=== PATIENT | female | born 1950 | race Caucasian/White ===

== ENCOUNTER → 2018-01-22 14:28 | Outpatient (CLI) | payer MEDICARE, BC, SELFPAY ==
[2018-01-22 16:30] LABS: Free T3 2.5 pg/mL (2.18-3.98); T4 Free Direct 0.97 ng/dL (0.76-1.46); Thyroid Stim Hormone (TSH) 1.66 uIU/mL (0.358-3.74)
[2018-01-24 12:30] LABS: Thyroid Peroxidase AB 122 IU/mL (0-34)
== END ==
PROVIDERS: Visit Provider Obstetrics & Gynecology
DX: R53.83 Other fatigue (principal)
CPT/HCPCS: 36415; 84439; 84443; 84481; 86376

== ENCOUNTER → 2018-11-28 10:31 | Outpatient (CLI) | payer MEDICARE, BC, SELFPAY ==
[2018-11-28 11:34] LABS: Hemoglobin 14.8 g/dl (12.0-15.0); Mean Corp Hgb Conc 33.6 g/gl (32-36); Mean Corpuscular Hgb 30.9 pg (27.0-32.0); Mean Corpuscular Volume 91.9 fL (81-99); Mean Platelet Vol. 9.6 fl (6.2-12.0); Platelet Count 221 K/mm3 (150-450); RBC Distribution Width CV 12.4 % (11.6-14.6); RBC Distribution Width SD 41.6 fl (35.1-43.9); Red Blood Count 4.79 M/mm3 (4.2-5.4); White Blood Count 4.4 K/mm3 (4.4-11.0)
[2018-11-28 11:36] LABS: Scan Indicated on CBC? Y/N NO
[2018-11-28 12:15] LABS: ALB/GLOB Ratio 1.2 RATIO (0.9-2.4); AST(SGOT) 14 U/L (15-37); Alanine Aminotransfer ALT/SGPT 20 U/L (13-56); Albumin, Serum 4.1 g/dL (3.2-5.0); Alkaline Phosphatase 80 U/L (45-117); Anion Gap 7 (5-15); BUN 15 mg/dL (7-18); BUN/Creat Ratio 17.9 RATIO (10-20); Calcium,Total 8.8 mg/dL (8.5-10.1); Chloride 108 mmol/L (98-107); Cholesterol 242 mg/dL (200); Creatinine, Serum 0.84 mg/dL (0.55-1.02); EST Glomerular Filtration Rate 72 mL/min (>60); Est Glom Filt Rate - Afr Amer 87 mL/min (>60); Free T3 2.3 pg/mL (2.18-3.98); Globulin 3.4 g/dL (2.2-4.2); Glucose 81 mg/dL (74-106); High Density Lipoprotein 57 mg/dL; Protein, Total 7.5 g/dL (6.4-8.2); Sodium Level 140 mmol/L (136-145); T4 Free Direct 0.92 ng/dL (0.76-1.46); Thyroid Stim Hormone (TSH) 1.93 uIU/mL (0.358-3.74); Triglycerides 74 mg/dL; Very Low Density Lipoprotein 15 mg/dL (5-40)
[2018-11-29 10:44] LABS: Thyroid Peroxidase AB 108 IU/mL (0-34)
--- OUTSIDE RECORDS SUMMARY | 2019-02-01 19:24 | XMS RPT_ITS ---
:1950 Author Organization OHIP Care Team Providers Name Role Phone THAD HOGAN Attending Unavailable HOGAN, THAD Referring Unavailable PEEREBOOM, CLARITZA Attending Unavailable CARIAS, RICARDO HOPE Referring Unavailable PEEREBOOM, CLARITZA Referring Unavailable HOGAN, THAD Attending Unavailable ASHLEY, MAGO Attending Unavailable ASHLEY, MAGO Referring Unavailable PEEREBOOM, CLARITZA Attending Unavailable CARIAS, RICARDO HOPE Referring Unavailable PEEREBOOM, CLARITZA Referring Unavailable HOGAN, THAD Attending Unavailable HOGAN, THAD Referring Unavailable PEEREBOOM, CLARITZA Attending Unavailable CARIAS, RICARDO HOPE Referring Unavailable PEEREBOOM, CLARITZA Referring Unavailable PEEREBOOM, CLARITZA Referring Unavailable HOGAN, THAD Attending Unavailable HOGAN, THAD Referring Unavailable PEEREBOOM, CLARITZA Attending Unavailable CARIAS, RICARDO HOPE Referring Unavailable PEEREBOOM, CLARITZA Referring Unavailable PEEREBOOM, CLARITZA Referring Unavailable ASHLEY, MAGO Attending Unavailable ASHLEY, MAGO Referring Unavailable PEEREBOOM, CLARITZA Referring Unavailable BenekoBerta ledesma Attending Unavailable Berta Allen Attending Unavailable PROBLEMS PROBLEMS DATE TYPE CONDITION / CODE ATTENDING STATUS SOURCE 11/28/2018 Unknown E03.9 - Berta Allen Active [facility] Hypothyroidism, Community unspecified / Hospital E03.9(ICD-10) Repository 10/21/2018 Active Other NA Active [facility] non-follicular [place] lymphoma, Repository unspecified site / C83.80(ICD-10) 06/16/2018 Active Encounter for NA Active [facility] screening for [place] other disorder / Repository Z13.89(ICD-10) 03/21/2018 Active Unknown / THAD HOGAN Active [facility] UNK(Unknown) [place] Repository 08/15/2017 Active Non-Hodgkin NA Active [facility] lymphoma, [facility] unspecified, Repository extranodal and solid organ sites / C85.99(ICD-10) PROCEDURES PROCEDURES No Procedure Records FoundRESULTS RESULTS CBC-COMPLETE BLOOD CNT Collected: 11/28/2018 Status: F Source: [facility] NO DIFF 10:38 AM [facility] REPOSITORY TYPE CODE TESTS RESULT OUT OF RANGE REFERENCE UNITS LAB L100.1000 4.4-11.0 K/mm3 Normal WBC 4.4 LAB L100.1200 4.2-5.4 M/mm3 Normal RBC 4.79 LAB L100.1300 12.0-15.0 g/dl Normal HGB 14.8 LAB L100.1400 37-47 % Normal HCT 44.0 LAB L100.1500 81-99 fL Normal MCV 91.9 LAB L100.1600 27.0-32.0 pg Normal MCH 30.9 LAB L100.1700 32-36 g/gl Normal MCHC 33.6 LAB L100.1810 11.6-14.6 % Normal RDW CV 12.4 LAB L100.1820 35.1-43.9 fl Normal RDW SD 41.6 LAB L100.1900 150-450 K/mm3 Normal PLT 221 LAB L100.2000 6.2-12.0 fl Normal MPV 9.6 Performed By: #### L100.0500 #### [facility] [address] [place], [address] COMPREHENSIVE METABOLIC Collected: 11/28/2018 Status: F Source: [facility] PROFIL 10:38 AM [facility] REPOSITORY TYPE CODE TESTS RESULT OUT OF RANGE REFERENCE UNITS LAB L501.0100 74-106 mg/dL Normal GLU 81 Result Comment: Please note revised GLUCOSE reference range effective 2017. LAB L501.1000 7-18 mg/dL Normal BUN 15 LAB L501.1100 0.55-1.02 mg/dL Normal CREAT,SERUM 0.84 Result Comment: The validity of the calculated GFR AND GFRAA in patients over 70 years has not been determined. Clinical correlation is essential. LAB L501.1110 >60 mL/min Normal EST GFR 72 Result Comment: Non- GFR Calc LAB L501.1115 >60 mL/min Normal EST GFR - AA 87 Result Comment: GFR Calc LAB L501.1300 10-20 RATIO Normal BUN/CRE 17.9 LAB L501.1500 6.4-8.2 g/dL T Normal PROT 7.5 LAB L501.1800 3.2-5.0 g/dL Normal ALB 4.1 LAB L501.1950 2.2-4.2 g/dL Normal GLOB 3.4 LAB L501.2000 0.9-2.4 RATIO Normal A/G 1.2 LAB L501.2200 8.5-10.1 mg/dL CA Normal 8.8 LAB L501.4100 15-37 U/L Low AST 14 LAB L501.4305 45-117 U/L Normal ALK P 80 LAB L501.4405 13-56 U/L Normal ALT 20 LAB L501.4600 0.20-1.00 mg/dL T Normal BILI 0.40 LAB L501.5300 136-145 mmol/L NA Normal 140 LAB L501.5600 3.5-5.1 mmol/L K Normal 4.0 LAB L501.5900 98-107 mmol/L High CL 108 LAB L501.6100 21.0-32.0 mmol/L Normal CO2 25.0 LAB L501.6200 5-15 Normal GAP 7 Performed By: #### L500.4050, L500.4100, L501.30115, L501.9520, L506.0400 #### [facility] [address] [place], [address] LIPID PROFILE Collected: 11/28/2018 Status: F Source: OCEANA 10:38 AM [facility] REPOSITORY TYPE CODE TESTS RESULT OUT OF RANGE REFERENCE UNITS LAB L501.4900 200 mg/dL High CHOL 242 Result Comment: <200 mg/dL Desirable 200-240 mg/dL Borderline >240 mg/dL High Risk LAB L501.5000 mg/dL Normal TRIG 74 Result Comment: The drugs N-Acetylcysteine and Metamizole may falsely depress this assay. Serum Triglycerides Reference Interval Normal <150 mg/dL Borderline high 150 - 199 mg/dL High 200 - 499 mg/dL Very High > or = 500 mg/dL LAB L501.6400 mg/dL Normal HDL 57 Result Comment: The drugs N-Acetylcysteine and Metamizole may falsely depress this assay. Reference Range HDL <40 mg/dL Low HDL Cholesterol HDL >or= 60 mg/dL High HDL Cholesterol LAB L501.6500 0-130 mg/dL High LDL 170 LAB L501.6600 5-40 mg/dL Normal VLDL 15 Performed By: #### L500.4050, L500.4100, L501.63287, L501.9520, L506.0400 #### [facility] [address] [place], [address] FREE T3 Collected: 11/28/2018 Status: F Source: OCEANA 10:38 AM [facility] REPOSITORY TYPE CODE TESTS RESULT OUT OF RANGE REFERENCE UNITS LAB L501.22969 2.18-3.98 pg/mL Normal FREE T3 2.3 Performed By: #### L500.4050, L500.4100, L501.70921, L501.9520, L506.0400 #### [facility] [address] [place], [address] THYROID STIM HORMONE Collected: 11/28/2018 Status: F Source: [place] (TSH) 10:38 AM [facility] REPOSITORY TYPE CODE TESTS RESULT OUT OF RANGE REFERENCE UNITS LAB L501.9520 0.358-3.74 uIU/mL Normal TSH 1.93 Performed By: #### L500.4050, L500.4100, L501.61148, L501.9520, L506.0400 #### [facility] [address] [place], [address] T4 FREE DIRECT Collected: 11/28/2018 Status: F Source: OCEANA 10:38 AM [facility] REPOSITORY TYPE CODE TESTS RESULT OUT OF RANGE REFERENCE UNITS LAB L506.0400 0.76-1.46 ng/dL Normal T4 FREE 0.92 DIRECT Performed By: #### L500.4050, L500.4100, L501.85732, L501.9520, L506.0400 #### [facility] [address] [place], [address] THYROID PEROXIDASE AB Collected: 11/28/2018 Status: F Source: OCEANA 10:38 AM [facility] REPOSITORY TYPE CODE TESTS RESULT OUT OF RANGE REFERENCE UNITS LAB L3300.6900 0-34 IU/mL High TPO AB [id number] Result Comment: Performed at: - [facility] [address] [id number] Director Heart: Gary Flannery PhD, Phone: [phone] Performed By: #### L3300.6900 #### [facility] (refer to report for specific site) refer to report for address and phone number PROGRESS Observed: 10/22/2018 Status: COMPLETED Source: BLESS[place] 10:57 AM [facility] REPOSITORY HNO ID: [id number] Author: Thad Hogan Service: (none) Author Type: Physician Type: Progress Notes Filed: 10/22/2018 11:02 AM Note Text: Lymphoma right eye with retinal vasculitis, 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) now with BRAO right eye: Imaging: - FA 06/18/2018 shows no active leakage right eye, trace leakage left eye s/p 25gPPV/diagnostic vitrectomy/pFAx 07/10/17 - Doing well / IOP acceptable - flow cytometry and cytology positive for lymphoma - s/p MTX #7 (08/12/17) - developed BRAO right eye after last MTX injection and was showing signs of activity in her other eye - was admitted and negative w/u for etiology of BRAO - completed XRT with rao to both eyes 10/21/17 - OCT possibly early RPE nodularity superotemporally right eye unchanged will monitor, normal and stable left eye - observe - f/u 6 months Cataract, OD>OS - visually significant - stable as above, okay to proceed with CE/IOL, scheduled for 10/27/18 locally Dry eye syndrome, both eyes - using AT, following with Dr. Delacruz I have confirmed and edited as necessary the relevant ophthalmic history, ROS, and the neuro exam findings as obtained by others. I have seen and examined this patient. I have discussed the case and the management of this patient's care with the Resident/Fellow, if applicable. I also have reviewed and agree with the assessment and plan as stated above and agree with all of its relevant components. 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 s/p RT to bilateral globes and optic nerves (3600 cGy/20 fx) completed 10/21/2017 HISTORY OF PRESENT ILLNESS: March 2017: Pt developed cobweb-like floaters and blurred vision in the right eye. Started prednisone for bronchitis - during this time eye symptoms unchanged Jun 2017: Vitrectomy atypical large cells. Flow cytometry positive for B-cell lymphoma. CT chest/abdomen/pelvis, LP, MRI brain, HIV1 and 2 all negative. Jul 2017: Began intravititreal methotrexate. Aug 2017: Developed central retinal artery occlusion OD necessitating discontinuation of ivit chemo Oct 2017: Radiation to bilateral globes and optic nerves complete INTERVAL HISTORY: Mrs. Colorado was last seen on 06/17/18, with stable MRI. She reported residual fatigue, stable poor vision right eye, and dry eye. She reported normal vision in the left eye. Recommendation was for continued follow-up with Dr. Houston and Ophthalmology.. She returns today in scheduled follow-up with new MRI, which shows no abnormal intracranial enhancement to indicate intracranial lymphoma. She saw Dr. Houston earlier today, and recommendation was for repeat MRI in 6 months. She reports she will be scheduled for cataract extraction right eye in the near future. She has no new complaints. She reports a good appetite and increased energy. She is alone today. RADIOLOGY/LABORATORY DATA: MRI of the brain 10/21/18: IMPRESSION: Unremarkable MRI of the brain. ?No abnormal intracranial enhancement to indicate intracranial lymphoma. ALLERGIES: Amoxicillin Current Outpatient Prescriptions: IBUPROFEN (ADVIL ORAL) Take 4 tablets by mouth as needed. iv contrast (will be provided with radiology test) MRI Brain Inject, intravenously, once for 1 dose.No IV access, insert saline lock prior to beginning of sedation, infusion, injection of imaging exam.Discontinue saline lock post exam. If Pt. has a central line or IVAD, may access for administration according to line specific nursing protocol.Once exam is complete flush line and de-access according to line specific nursing protocol in the MR contrast administration guidelines link levothyroxine (SYNTHROID) 75 mcg tablet Take 1 tablet by mouth once daily as needed. No current facility-administered medications for this visit. REVIEW OF SYSTEMS: GENERAL: Negative for weight loss, fevers, chills, or night sweats. NECK: Negative for masses in the neck. RESPIRATORY: Negative for cough or shortness of breath. CARDIAC: Negative for chest pain, palpitations, murmurs, or syncopal episodes. GI: Negative for nausea, vomiting, diarrhea, constipation, blood per rectum, or melena. : Negative for dysuria, hematuria, urgency, frequency or incontinence. MUSCULOSKELETAL: Negative for limitations in movement, pain, or swelling. HEMATOLOGIC: Negative for bleeding or easy bruising. SKIN: Negative for rashes or other skin changes. Neuro detailed: Headache: none Pain interventions: none required Fatigue: mild Decreased visual acuity: moderate, baseline Diplopia: none Visual Field Changes: No Tinnitus: none Hearing loss: none Dysphagia: No Decreased balance: none Arm/leg numbness: none Focal weakness: none Limb discoordination: none Disorientation: none Decreased concentration: none Memory changes: none Word finding difficulty: none Dysarthria: none Seizures: none Syncope: none PHYSICAL EXAM: BP 126/63 Pulse 66 Temp 36.7 ?C (98 ?F) Resp 16 Wt 60.8 kg (134 lb) LMP (LMP Unknown) SpO2 99% BMI 20.21 kg/m? KPS: 90 Neuro function score (NFS): NFS 1 (Minor neurologic symptoms; fully active at home/work without assistance) General Appearance: Alert and oriented. No acute distress. Neck: Normal ROM. No palpable cervical or supraclavicular adenopathy. Chest: No respiratory distress. Musculoskeletal: No edema. Normal ROM in extremities. Skin: No rashes noted Neuro: Speech fluent. CN II-XII intact except for no useful vision right eye. Able to recite zipcode backwards. Strength intact and symmetric, 5/5 throughout. Sensation intact to light touch. Normal gait. EPIFANIO and FTN intact. Negative Romberg. No pronator drift. Tandem gait intact. No other focal deficits. Is patient on a clinical trial? 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 s/p RT to bilateral globes and optic nerves (3600 cGy/20 fx) completed 10/21/2017 Clinically improved. MRI today shows no evidence of disease. She will continue follow up with Dr. Houston in 6 months, and with Ophthalmology. We will see her as needed. She agrees with this plan. She will call if concerns arise. Lucy Gonzalez RN DIRECTOR BIOMEDICAL ENGINEERING.DATABASE TESTER cc: Ricardo Carias MD [address] [place] [address] Dr. Claritza Power MD- [facility] Dr. Thad Hogan MD- [facility] PROGRESS Observed: 10/21/2018 Status: COMPLETED Source: [place]ESS[place] 12:16 PM [facility] REPOSITORY HNO ID: [id number] Author: Claritza Houston Service: (none) Author Type: Physician Type: Progress Notes Filed: 10/21/2018 12:21 PM Note Text: [facility] CLINICAL NOTE [facility] Solid Tumor Oncology PATIENT NAME: Amy Colorado [facility] NO.: [id number] ATTENDING PHYSICIAN: Claritza Houston MD DATE OF SERVICE: October 21, 2018 DIAGNOSIS: Vitreo-retinal B-cell lymphoma. HISTORY OF PRESENT ILLNESS: March 2017: Pt developed cobweb-like floaters and blurred vision in the right eye. Started prednisone for bronchitis - during this time eye symptoms unchanged Jun 2017: Vitrectomy atypical large cells. Flow cytometry positive for B-cell lymphoma. CT chest/abdomen/pelvis, LP, MRI brain, HIV1 and 2 all negative. Jul 2017: Began intravititreal methotrexate. Aug 2017: Developed central retinal artery occlusion OD necessitating discontinuation of ivit chemo Oct 2017: Radiation to bilateral globes and optic nerves complete CURRENT MANAGEMENT: None SUBJECTIVE: July 18, 2017 - Currently, the patient reports improvement in eye symptoms including floaters following vitrectomy . Patient denies [place], weakness, numbness, difficulty walking, difficulty using arms, syncope, seizures, speech difficulty, memory loss, night sweats or weight loss. September 11, 2017 - Here for follow up to develop management plan. She has blurry vision but no other symptoms. December 17, 2017 - Has felt fatigue since last week of radiation. She is able to do her activities but she states she is slower and has less stamina. She states this reminds her of hypothyroidism before she was treated. Has right eye blurriness and left eye floaters and webs. March 20, 2018 - Her right sided vision is blurry, attributed to cataract for which she may have resection. Left sided vision slightly improved; fewer floaters. June 17, 2018 - Feels OK - traveling a lot to see children and and grandchildren. No symptoms except vision which is unchanged. October 21, 2018 - Here for follow up. Doing fine. Having right cataract removal 10/27. Left eye vision fine Grand-daughter (born 2012) has neuroblastoma and is starting BMT March 2018 Grandchild #8 to be born Jun 2018 SOCIAL HISTORY: [place]: [place], [place] Marital: , [place] Children: Occupation: Housewife Accompanied today by: sister. Place of jain: Tobacco: Smoked on rare occasions in teens and early 20s, no h/o smoking in the past 40 years. 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 Disp: Rfl: levothyroxine (SYNTHROID) 75 mcg tablet Take 1 tablet by mouth once daily as needed. Disp: Rfl: No current facility-administered medications for this visit. ALLERGIES: Please see EPIC ALLERGIES Allergen Reactions - Amoxicillin GI Upset headache FAMILY HISTORY: FAMILY HISTORY Problem Relation Age of Onset - Lymphoma (Unclear type) Father Late 70s; Did respond to chemotherapy. was apparently unrelated to lymphoma. - Cataract Mother - Bone marrow problem (Specifics unclear) Mother Mother was seen by an oncologist in her late 80s, had bone marrow aspiration/biopsy done; at the age of 91. - Neuroblastoma Granddaughter Diagnosed at the age of 4; currently being treated at [facility]. - Brain tumor (Unlcear type) Brother Diagnosed at 68; Was treated in [facility] with surgical resection, XRT and chemotherapy (oral agent). within 7 months of diagnosis. No other history of cancer in first degree relatives PHYSICAL EXAMINATION: Patient is in no distress. Sclerae and conjunctivae are clear. Right pupil dilated (pt currently on a mydriatic agent). Oropharynx is normal. There is no cervical, supraclavicular, axillary or inguinal lymphadenopathy. Heart is regular. Lungs are clear. Abdomen is soft and nontender. Extremities have no edema. Mental status: clear. Speech: fluent. Gait: stable IMAGING - MRI BRAIN: Stable MRI. TERESE KPS: 80 : Pt post-menopausal. IMPRESSION (October 21, 2018): Primary vitreo-retinal B- cell lymphoma (PVRL). No parenchymal disease. Will continue to follow. PLAN (October 21, 2018): MRI q [address] Hogan per his protocol. Claritza Houston MD cc: Thad Hogan MD - [facility] Mago Ramirez MD - [facility] Ricardo Carias MD - [facility] Observed: 10/21/2018 Status: COMPLETED Source: [place]ESS[place] 12:15 PM 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 s/p RT to bilateral globes and optic nerves (3600 cGy/20 fx) completed 10/21/2017 HISTORY OF PRESENT ILLNESS: March 2017: Pt developed cobweb-like floaters and blurred vision in the right eye. Started prednisone for bronchitis - during this time eye symptoms unchanged Jun 2017: Vitrectomy atypical large cells. Flow cytometry positive for B-cell lymphoma. CT chest/abdomen/pelvis, LP, MRI brain, HIV1 and 2 all negative. Jul 2017: Began intravititreal methotrexate. Aug 2017: Developed central retinal artery occlusion OD necessitating discontinuation of ivit chemo Oct 2017: Radiation to bilateral globes and optic nerves complete INTERVAL HISTORY: Mrs. Colorado was last seen on 06/17/18, with stable MRI. She reported residual fatigue, stable poor vision right eye, and dry eye. She reported normal vision in the left eye. Recommendation was for continued follow-up with Dr. Houston and Ophthalmology.. She returns today in scheduled follow-up with new MRI, which shows no abnormal intracranial enhancement to indicate intracranial lymphoma. She saw Dr. Houston earlier today, and recommendation was for repeat MRI in 6 months. She reports she will be scheduled for cataract extraction right eye in the near future. She has no new complaints. She reports a good appetite and increased energy. She is alone today. RADIOLOGY/LABORATORY DATA: MRI of the brain 10/21/18: IMPRESSION: Unremarkable MRI of the brain. ?No abnormal intracranial enhancement to indicate intracranial lymphoma. ALLERGIES: Amoxicillin Current Outpatient Prescriptions: IBUPROFEN (ADVIL ORAL) Take 4 tablets by mouth as needed. iv contrast (will be provided with radiology test) MRI Brain Inject, intravenously, once for 1 dose.No IV access, insert saline lock prior to beginning of sedation, infusion, injection of imaging exam.Discontinue saline lock post exam. If Pt. has a central line or IVAD, may access for administration according to line specific nursing protocol.Once exam is complete flush line and de-access according to line specific nursing protocol in the MR contrast administration guidelines link levothyroxine (SYNTHROID) 75 mcg tablet Take 1 tablet by mouth once daily as needed. No current facility-administered medications for this visit. REVIEW OF SYSTEMS: GENERAL: Negative for weight loss, fevers, chills, or night sweats. NECK: Negative for masses in the neck. RESPIRATORY: Negative for cough or shortness of breath. CARDIAC: Negative for chest pain, palpitations, murmurs, or syncopal episodes. GI: Negative for nausea, vomiting, diarrhea, constipation, blood per rectum, or melena. : Negative for dysuria, hematuria, urgency, frequency or incontinence. MUSCULOSKELETAL: Negative for limitations in movement, pain, or swelling. HEMATOLOGIC: Negative for bleeding or easy bruising. SKIN: Negative for rashes or other skin changes. Neuro detailed: Headache: none Pain interventions: none required Fatigue: mild Decreased visual acuity: moderate, baseline Diplopia: none Visual Field Changes: No Tinnitus: none Hearing loss: none Dysphagia: No Decreased balance: none Arm/leg numbness: none Focal weakness: none Limb discoordination: none Disorientation: none Decreased concentration: none Memory changes: none Word finding difficulty: none Dysarthria: none Seizures: none Syncope: none PHYSICAL EXAM: BP 126/63 Pulse 66 Temp 36.7 ?C (98 ?F) Resp 16 Wt 60.8 kg (134 lb) LMP (LMP Unknown) SpO2 99% BMI 20.21 kg/m? KPS: 90 Neuro function score (NFS): NFS 1 (Minor neurologic symptoms; fully active at home/work without assistance) General Appearance: Alert and oriented. No acute distress. Neck: Normal ROM. No palpable cervical or supraclavicular adenopathy. Chest: No respiratory distress. Musculoskeletal: No edema. Normal ROM in extremities. Skin: No rashes noted Neuro: Speech fluent. CN II-XII intact except for no useful vision right eye. Able to recite zipcode backwards. Strength intact and symmetric, 5/5 throughout. Sensation intact to light touch. Normal gait. EPIFANIO and FTN intact. Negative Romberg. No pronator drift. Tandem gait intact. No other focal deficits. Is patient on a clinical trial? 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 s/p RT to bilateral globes and optic nerves (3600 cGy/20 fx) completed 10/21/2017 Clinically improved. MRI today shows no evidence of disease. She will continue follow up with Dr. Houston in 6 months, and with Ophthalmology. We will see her as needed. She agrees with this plan. She will call if concerns arise. uLcy Gonzalez RN DIRECTOR BIOMEDICAL ENGINEERING.DATABASE TESTER cc: Ricardo Carias MD [address] [place] [id number] Claritza Power [facility]- [facility] Dr. 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 Elevated blood-pressure reading without diagnos*INVALID FOR*07/10/2017 Hypothyroidism [E03.9] INVALID FOR* More... 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 Diffuse large B-cell lymphoma of extranodal sit*INVALID FOR* BRAO (branch retinal artery occlusion), right [*INVALID FOR* More... Follow-up and Disposition History Recorded Encounter Status:Closed by LUCY GONZALEZ DATABASE TESTER on 10/21/18 CNOV Observed: 10/21/2018 Status: COMPLETED Source: BLESSING 11:10 AM [facility] REPOSITORY Office Visit (NSCAMN) AMY COLROADO ([id number]) 1950 F Date Time Provider Department 10/21/18 11:10 AM CLARITZA HOUSTON NSCAMN During your visit today, we recorded the following information about you: Temperature Pulse Respiration Blood pressure 98 degrees 66/minute 16/minute 126/63 Weight 60.8 kg Mindy Love Ma 10/21/2018 11:48 AM Signed Additional intake questions: Has the patient had nausea, vomiting, diarrhea, constipation, fatigue for > 1 week? None of the above Does the patient have a decreased appetite? No Does patient want to see a Irrigator Overhead? No (yes to any of above refer patient to schedulers for dietitian appointment) ) Does patient have any new or increased numbness or tingling of extremities? No Is patient interested in fertility information? No Does patient need any prescription refills? No Electronically Signed By: Mindy Houston MD 10/21/2018 12:21 PM Signed [facility] CLINICAL NOTE [facility] Solid Tumor Oncology PATIENT NAME: Amy Colorado [facility] NO.: [id number] ATTENDING PHYSICIAN: Claritza Houston MD DATE OF SERVICE: October 21, 2018 DIAGNOSIS: Vitreo-retinal B-cell lymphoma. HISTORY OF PRESENT ILLNESS: March 2017: Pt developed cobweb-like floaters and blurred vision in the right eye. Started prednisone for bronchitis - during this time eye symptoms unchanged Jun 2017: Vitrectomy atypical large cells. Flow cytometry positive for B-cell lymphoma. CT chest/abdomen/pelvis, LP, MRI brain, HIV1 and 2 all negative. Jul 2017: Began intravititreal methotrexate. Aug 2017: Developed central retinal artery occlusion OD necessitating discontinuation of ivit chemo Oct 2017: Radiation to bilateral globes and optic nerves complete CURRENT MANAGEMENT: None SUBJECTIVE: July 18, 2017 - Currently, the patient reports improvement in eye symptoms including floaters following vitrectomy . Patient denies [place], weakness, numbness, difficulty walking, difficulty using arms, syncope, seizures, speech difficulty, memory loss, night sweats or weight loss. September 11, 2017 - Here for follow up to develop management plan. She has blurry vision but no other symptoms. December 17, 2017 - Has felt fatigue since last week of radiation. She is able to do her activities but she states she is slower and has less stamina. She states this reminds her of hypothyroidism before she was treated. Has right eye blurriness and left eye floaters and webs. March 20, 2018 - Her right sided vision is blurry, attributed to cataract for which she may have resection. Left sided vision slightly improved; fewer floaters. June 17, 2018 - Feels OK - traveling a lot to see children and and grandchildren. No symptoms except vision which is unchanged. October 21, 2018 - Here for follow up. Doing fine. Having right cataract removal 10/27. Left eye vision fine Grand-daughter (born 2012) has neuroblastoma and is starting BMT March 2018 Grandchild #8 to be born Jun 2018 SOCIAL HISTORY: [place]: [place], [place] Marital: , [place] Children: Occupation: Housewife Accompanied today by: sister. Place of jain: Tobacco: Smoked on rare occasions in teens and early 20s, no h/o smoking in the past 40 years. 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 Disp: Rfl: levothyroxine (SYNTHROID) 75 mcg tablet Take 1 tablet by mouth once daily as needed. Disp: Rfl: No current facility-administered medications for this visit. ALLERGIES: Please see EPIC ALLERGIES Allergen Reactions - Amoxicillin GI Upset headache FAMILY HISTORY: FAMILY HISTORY Problem Relation Age of Onset - Lymphoma (Unclear type) Father Late 70s; Did respond to chemotherapy. was apparently unrelated to lymphoma. - Cataract Mother - Bone marrow problem (Specifics unclear) Mother Mother was seen by an oncologist in her late 80s, had bone marrow aspiration/biopsy done; at the age of 91. - Neuroblastoma Granddaughter Diagnosed at the age of 4; currently being treated at [facility]. - Brain tumor (Unlcear type) Brother Diagnosed at 68; Was treated in [facility] with surgical resection, XRT and chemotherapy (oral agent). within 7 months of diagnosis. No other history of cancer in first degree relatives PHYSICAL EXAMINATION: Patient is in no distress. Sclerae and conjunctivae are clear. Right pupil dilated (pt currently on a mydriatic agent). Oropharynx is normal. There is no cervical, supraclavicular, axillary or inguinal lymphadenopathy. Heart is regular. Lungs are clear. Abdomen is soft and nontender. Extremities have no edema. Mental status: clear. Speech: fluent. Gait: stable IMAGING - MRI BRAIN: Stable MRI. TERESE KPS: 80 : Pt post-menopausal. IMPRESSION (October 21, 2018): Primary vitreo-retinal B- cell lymphoma (PVRL). No parenchymal disease. Will continue to follow. PLAN (October 21, 2018): MRI q [address] Hogan per his protocol. 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 Elevated blood-pressure reading without diagnos*INVALID FOR*07/10/2017 Hypothyroidism [E03.9] INVALID FOR* More... 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 Diffuse large B-cell lymphoma of extranodal sit*INVALID FOR* BRAO (branch retinal artery occlusion), right [*INVALID FOR* More... Visit Notes: >> Mindy Love Ma e Oct 21, 2018 11:48 AM Status: Signed Additional intake questions: Has the patient had nausea, vomiting, diarrhea, constipation, fatigue for > 1 week? None of the above Does the patient have a decreased appetite? No Does patient want to see a Irrigator Overhead? No (yes to any of above refer patient to schedulers for dietitian appointment) ) Does patient have any new or increased numbness or tingling of extremities? No Is patient interested in fertility information? No Does patient need any prescription refills? No Electronically Signed By: Mindy Love Ma Medications Discontinued During This Encounter erythromycin ophthalmic ointment * 2 06/18/2018 10/21/2018 Route: BOTH EYES Sig: Use 1 application in both eyes daily at bedtime. Disc: Reason for discontinue is not on file. hydrOXYzine pamoate (VISTARIL) 25 mg* 09/09/2017 10/21/2018 Class: Historical Med Route: ORAL Sig: Take 25 mg by mouth as needed. Disc: Reason for discontinue is not on file. Follow-up and Disposition History Recorded Encounter Status:Closed by CLARITZA HOUSTON MD on 10/21/18 MRI BRAIN WO/W Observed: 10/21/2018 Status: F Source: BLESSING IVCON 10:24 AM [facility] REPOSITORY * * *Final Report* * * DATE OF EXAM: Oct 21 2018 10:24AM QBM [id number] - MRI BRAIN WO/W IVCON / PROCEDURE REASON: Other non-follicular lymphoma, unspecified site * * * * Physician Interpretation * * * * EXAMINATION: MRI BRAIN WO/W IVCON CLINICAL HISTORY: Lymphoma TECHNIQUE: Routine brain MRI protocol without and with contrast including diffusion images. MQ: [id number] Contrast: 12 mL Dotarem IV COMPARISON: None. RESULT: Acute Change: There is no evidence of restricted diffusion to suggest an acute infarct. Hemorrhage: No evidence of prior parenchymal hemorrhage on the gradient echo images. Mass Lesion/ Mass Effect: No evidence of an intracranial mass or extra-axial fluid collection. No abnormal parenchymal or leptomeningeal enhancement is noted following contrast administration. No significant mass effect. Chronic Change: The white matter is within normal limits of signal intensity for age. Parenchyma: No significant volume loss for age. The brain parenchyma is otherwise within normal limits of signal intensity and morphology. Ventricles: Normal caliber and morphology. Skull Base: Hypothalamic and pituitary region are grossly normal. Craniocervical junction is normal. No significant marrow replacement process. Vasculature: Major intracranial arterial structures, and dural venous sinuses show typical flow void, suggesting patency by spin echo criteria. Other: Mucosal thickening in the bilateral ethmoid air cells and maxillary sinuses. The orbits and extracranial soft tissues are unremarkable. IMPRESSION: Unremarkable MRI of the brain. No abnormal intracranial enhancement to indicate intracranial lymphoma. Office Cashier: MACY Transcribe Date/Time: Oct 21 2018 10:38A Dictated by : MICHELET PARHAM MD This examination was interpreted and the report reviewed and electronically signed by: MICHELET PARHAM MD on Oct 21 2018 10:44AM EST [id number] PROGRESS Observed: 10/21/2018 Status: COMPLETED Source: BLESSING 10:16 AM [facility] REPOSITORY HNO ID: [id number] Author: Ileana Saleh Service: (none) Author Type: (none) Type: Progress Notes Filed: 10/21/2018 10:16 AM Note Text: Radiology Service Progress Note PATIENT NAME: Amy Colroado DATE OF SERVICE: October 21, 2018 TIME: 10:16 AM PATIENT IDENTITY VERIFICATION COMPLETED USING TWO (2) METHODS: Patient confirmed name verbally and Date of . PATIENT GENDER DATA: Female. status: : No status: NO. PATIENT RELEVANT IMPLANT DATA REVIEWED: Yes RADIOLOGY DEPARTMENT: MR; Exam(s) Completed: Head: Routine Brain PERIPHERAL IV DATA: Site assessment: Clean,Dry and Intact, Site disposition Discontinued SIGNED BY: Ileana Saleh October 21, 2018 10:16 AM PROGRESS Observed: 10/21/2018 Status: COMPLETED Source: BLESSING 9:42 AM [facility] REPOSITORY HNO ID: [id number] Author: Janiya (Rn) LYDIA Hernandez Service: Radiology Author Type: Registered Nurse Type: Progress Notes Filed: 10/21/2018 9:53 AM Note Text: Radiology Service Progress Note PATIENT NAME: Amy Colorado DATE OF SERVICE: October 21, 2018 TIME: 9:42 AM PATIENT WEIGHT: 138 LBS PATIENT IDENTITY VERIFICATION COMPLETED USING TWO (2) METHODS: Patient confirmed name verbally and ID band matches.. PATIENT GENDER DATA: Female. status: : No status: NO. CONTRAST INDUCED NEPHROPATHY RISK FACTORS: Patient age > 60 years CREATININE: Creatinine Date Value Ref Range Status 08/15/2017 0.95 0.58 - 0.96 mg/dL Final 07/16/2017 0.80 0.58 - 0.96 mg/dL Final 07/01/2017 0.91 0.58 - 0.96 mg/dL Final eGFR-All Other Races Date Value Ref Range Status 08/15/2017 59 . Final Comment: eGFR (Estimated GFR) Units of measure: mL/min/1.73 meters squared eGFR is derived from the reexpressed MDRD Study equation using the following parameters: serum creatinine, age, gender and race. The creatinine assay has been calibrated to be traceable to IDMS. An eGFR <60 mL/min/1.73m2 for >3 months is consistent with chronic kidney disease. Refer to KDOQI guidelines for clinical interpretation. In patients with unstable renal function, e.g. those with acute kidney injury, the eGFR may not accurately reflect actual GFR. eGFR- Date Value Ref Range Status 08/15/2017 >60 Final P.O.C.T. RESULTS: POC done: Yes, See Lab Tab October 21, 2018 TREATMENT: No Hydration needed. ALLERGIES: Reviewed and unchanged CONTRAST ALLERGY: NO. IV SITE: Ambulatory: A peripheral IV was started in the Right antecubital site with a Angio cath: 22 gauge. and A Saline lock was inserted per protocol IV SITE APPEARANCE: Clean,Dry and Intact SIGNED BY: Janiya Hernandez RN October 21, 2018 9:42 AM PROGRESS Observed: 06/18/2018 Status: COMPLETED Source: BLESSING 10:04 AM [facility] REPOSITORY HNO ID: [id number] Author: Robbin Delacruz Service: (none) Author Type: Physician Type: Progress Notes Filed: 06/18/2018 10:14 AM Note Text: ASSESSMENT/PLAN: 1. Dry eye syndrome of bilateral lacrimal glands - ICD9: 375.15, ICD10: H04.123 (primary diagnosis) MGD component Aqueous component Relief with ATs Likes using heat AM symptoms Trial of warm compresses, PM erythromycin ointment Continue ATs Place plugs BLL today 0.8, snug fit Follow up 4 months Consider cataract once dry eyes better controlled Robbin Delacruz MD I have confirmed and edited as necessary the relevant ophthalmic history, ROS, and the neuro exam findings as obtained by others. I have seen and examined Amy Colorado. I have discussed the case and the management of this patient's care with the Resident/Fellow, if applicable. I also have reviewed and agree with the assessment and plan as stated above and agree with all of its relevant components. Robbin Delacruz MD PROGRESS Observed: 06/18/2018 Status: COMPLETED Source: BLESSING 9:28 AM [facility] REPOSITORY HNO ID: [id number] Author: Thad Hogan Service: (none) Author Type: Physician Type: Progress Notes Filed: 06/18/2018 9:34 AM Note Text: Lymphoma right eye with retinal vasculitis, 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) now with BRAO right eye: Imaging: - FA 06/18/2018 shows no active leakage right eye, trace leakage left eye s/p 25gPPV/diagnostic vitrectomy/pFAx 07/10/17 - Doing well / IOP acceptable - flow cytometry and cytology positive for lymphoma - s/p MTX #7 (08/12/17) - developed BRAO right eye after last MTX injection and was showing signs of activity in her other eye - was admitted and negative w/u for etiology of BRAO - completed XRT with rao to both eyes 10/21/17 - OCT possibly early RPE nodularity superotemporally right eye will monitor, normal and stable left eye - observe - f/u 4 months Cataract, OD>OS - visually significant - stable as above, okay to proceed with CE/IOL Dry eye syndrome, both eyes - using AT, see Dr. Delacruz today for possible plugs I have confirmed and edited as necessary the relevant ophthalmic history, ROS, and the neuro exam findings as obtained by others. I have seen and examined this patient. I have discussed the case and the management of this patient's care with the Resident/Fellow, if applicable. I also have reviewed and agree with the assessment and plan as stated above and agree with all of its relevant components. Thad Hogan MD PROGRESS Observed: 06/17/2018 Status: COMPLETED Source: BLESSING 10:25 AM 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 s/p RT to bilateral globes and optic nerves (3600 cGy/20 fx) completed 10/21/2017 HISTORY OF PRESENT ILLNESS: March 2017: Pt developed cobweb-like floaters and blurred vision in the right eye. Started prednisone for bronchitis - during this time eye symptoms unchanged Jun 2017: Vitrectomy atypical large cells. Flow cytometry positive for B-cell lymphoma. CT chest/abdomen/pelvis, LP, MRI brain, HIV1 and 2 all negative. Jul 2017: Began intravititreal methotrexate. Aug 2017: Developed central retinal artery occlusion OD necessitating discontinuation of ivit chemo Oct 2017: Radiation to bilateral globes and optic nerves complete INTERVAL HISTORY: She reports feeling tired, but not inhibiting her activities of daily living. She has bilateral dry eye, was using Refresh eye drops, but has found that she is becoming dependent on it and has stopped using it. She will see Dr. Hogan tomorrow in ophthalmology for exam and recommended asking him about management of dry eye. She denies floaters, no visual changes, or visual field deficits. She has minimal useful vision of the right eye since the retinal artery occlusion and now she has a cataract in the right eye, will likely go for cataract surgery after next MRI per Dr. Hogan. She has not noted any changes in the left eye. Denies headaches, numbness/tingling of the face, facial weakness, seizures . RADIOLOGY/LABORATORY DATA: MRI Brain 05/16/18 IMPRESSION: Stable MRI of the brain compared to 03/19/2018 without evidence of an acute intracranial process, mass, or pathologic enhancement to suggest intracranial metastatic disease. ALLERGIES Allergen Reactions - Amoxicillin GI Upset headache MEDICATIONS: IBUPROFEN (ADVIL ORAL) Take 4 tablets by mouth as needed. hydrOXYzine pamoate (VISTARIL) 25 mg capsule Take 25 mg by mouth as needed. levothyroxine (SYNTHROID) 75 mcg tablet Take 1 tablet by mouth once daily as needed. REVIEW OF SYSTEMS: GENERAL: Negative for weight loss, fevers, chills, or night sweats. NECK: Negative for masses in the neck. RESPIRATORY: Negative for cough or shortness of breath. CARDIAC: Negative for chest pain, palpitations, murmurs, or syncopal episodes. GI: Negative for nausea, vomiting, diarrhea, constipation, blood per rectum, or melena. : Negative for dysuria, hematuria, urgency, frequency or incontinence. MUSCULOSKELETAL: Negative for limitations in movement, pain, or swelling. HEMATOLOGIC: Negative for bleeding or easy bruising. SKIN: Negative for rashes or other skin changes. Neuro detailed: Headache: none Pain interventions: none required Fatigue: mild Decreased visual acuity: moderate, baseline Diplopia: none Visual Field Changes: No Tinnitus: none Hearing loss: none Dysphagia: No Decreased balance: none Arm/leg numbness: none Focal weakness: none Limb discoordination: none Disorientation: none Decreased concentration: none Memory changes: none Word finding difficulty: none Dysarthria: none Seizures: none Syncope: none PHYSICAL EXAM: VS: BP 143/74 Pulse 70 Temp 36.7 ?C (98.1 ?F) (Oral) Resp 16 Wt 62.6 kg (138 lb 0.1 oz) LMP (LMP Unknown) SpO2 98% BMI 20.82 kg/m? KPS: 90 Neuro function score (NFS): NFS 1 (Minor neurologic symptoms; fully active at home/work without assistance) General Appearance: Alert and oriented. No acute distress. Neck: Normal ROM. No palpable cervical or supraclavicular adenopathy. Chest: No respiratory distress. Musculoskeletal: No edema. Normal ROM in extremities. Skin: No rashes noted Neuro: Speech fluent. CN II-XII intact. Strength intact and symmetric, 5/5 throughout. Sensation intact to light touch. FNF intact. No other focal deficits. Is patient on a clinical trial? 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 s/p RT to bilateral globes and optic nerves (3600cGy/20 fx) completed 10/21/2017. Clinically doing well with mild toxicity from radiation, including bilateral dry eye. She has blurry vision of the right eye prior to radiation due to right retinal artery occlusion, now with right eye cataract. No new visual symptoms or focal neurologic deficit on physical exam. MRI brain negative for evidence of disease. We will see her again in four months in coordinated follow up with Dr. Power with MRI brain. She will see Dr. Hogan in ophthalmology for exam tomorrow. Signed by: Yessica Echevarria MD PGY-5, Radiation Oncology June 17, 2018, 10:44 AM Staff addendum: Patient was seen by Dr. Yessica Echevarria. Pertinent parts of the history and PE were confirmed by me. I have reviewed her note and agree with its content. 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 s/p RT to bilateral globes and optic nerves (3600cGy/20 fx) completed 10/21/2017. The patient returns for f/u. KPS-90. Images were reviewed. A/P: Clinically doing well. We will see her again in four months in coordinated follow up with Dr. Power with MRI brain. She will see Dr. Hogan in ophthalmology for exam tomorrow. Mago Ramirez MD cc: Ricardo Carias MD [address] [place] [address] Dr. Claritza Power MD- [facility] Dr. Thad Hogan MD- [facility] CNOV Observed: 06/17/2018 Status: COMPLETED Source: BLESSING 10:15 AM 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 s/p RT to bilateral globes and optic nerves (3600 cGy/20 fx) completed 10/21/2017 HISTORY OF PRESENT ILLNESS: March 2017: Pt developed cobweb-like floaters and blurred vision in the right eye. Started prednisone for bronchitis - during this time eye symptoms unchanged Jun 2017: Vitrectomy atypical large cells. Flow cytometry positive for B-cell lymphoma. CT chest/abdomen/pelvis, LP, MRI brain, HIV1 and 2 all negative. Jul 2017: Began intravititreal methotrexate. Aug 2017: Developed central retinal artery occlusion OD necessitating discontinuation of ivit chemo Oct 2017: Radiation to bilateral globes and optic nerves complete INTERVAL HISTORY: She reports feeling tired, but not inhibiting her activities of daily living. She has bilateral dry eye, was using Refresh eye drops, but has found that she is becoming dependent on it and has stopped using it. She will see Dr. Hogan tomorrow in ophthalmology for exam and recommended asking him about management of dry eye. She denies floaters, no visual changes, or visual field deficits. She has minimal useful vision of the right eye since the retinal artery occlusion and now she has a cataract in the right eye, will likely go for cataract surgery after next MRI per Dr. Hogan. She has not noted any changes in the left eye. Denies headaches, numbness/tingling of the face, facial weakness, seizures . RADIOLOGY/LABORATORY DATA: MRI Brain 05/16/18 IMPRESSION: Stable MRI of the brain compared to 03/19/2018 without evidence of an acute intracranial process, mass, or pathologic enhancement to suggest intracranial metastatic disease. ALLERGIES Allergen Reactions - Amoxicillin GI Upset headache MEDICATIONS: IBUPROFEN (ADVIL ORAL) Take 4 tablets by mouth as needed. hydrOXYzine pamoate (VISTARIL) 25 mg capsule Take 25 mg by mouth as needed. levothyroxine (SYNTHROID) 75 mcg tablet Take 1 tablet by mouth once daily as needed. REVIEW OF SYSTEMS: GENERAL: Negative for weight loss, fevers, chills, or night sweats. NECK: Negative for masses in the neck. RESPIRATORY: Negative for cough or shortness of breath. CARDIAC: Negative for chest pain, palpitations, murmurs, or syncopal episodes. GI: Negative for nausea, vomiting, diarrhea, constipation, blood per rectum, or melena. : Negative for dysuria, hematuria, urgency, frequency or incontinence. MUSCULOSKELETAL: Negative for limitations in movement, pain, or swelling. HEMATOLOGIC: Negative for bleeding or easy bruising. SKIN: Negative for rashes or other skin changes. Neuro detailed: Headache: none Pain interventions: none required Fatigue: mild Decreased visual acuity: moderate, baseline Diplopia: none Visual Field Changes: No Tinnitus: none Hearing loss: none Dysphagia: No Decreased balance: none Arm/leg numbness: none Focal weakness: none Limb discoordination: none Disorientation: none Decreased concentration: none Memory changes: none Word finding difficulty: none Dysarthria: none Seizures: none Syncope: none PHYSICAL EXAM: VS: BP 143/74 Pulse 70 Temp 36.7 ?C (98.1 ?F) (Oral) Resp 16 Wt 62.6 kg (138 lb 0.1 oz) LMP (LMP Unknown) SpO2 98% BMI 20.82 kg/m? KPS: 90 Neuro function score (NFS): NFS 1 (Minor neurologic symptoms; fully active at home/work without assistance) General Appearance: Alert and oriented. No acute distress. Neck: Normal ROM. No palpable cervical or supraclavicular adenopathy. Chest: No respiratory distress. Musculoskeletal: No edema. Normal ROM in extremities. Skin: No rashes noted Neuro: Speech fluent. CN II-XII intact. Strength intact and symmetric, 5/5 throughout. Sensation intact to light touch. FNF intact. No other focal deficits. Is patient on a clinical trial? 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 s/p RT to bilateral globes and optic nerves (3600cGy/20 fx) completed 10/21/2017. Clinically doing well with mild toxicity from radiation, including bilateral dry eye. She has blurry vision of the right eye prior to radiation due to right retinal artery occlusion, now with right eye cataract. No new visual symptoms or focal neurologic deficit on physical exam. MRI brain negative for evidence of disease. We will see her again in four months in coordinated follow up with Dr. Power with MRI brain. She will see Dr. Hogan in ophthalmology for exam tomorrow. Signed by: Yessica Echevarria MD PGY-5, Radiation Oncology June 17, 2018, 10:44 AM Staff addendum: Patient was seen by Dr. Yessica Echevarria. Pertinent parts of the history and PE were confirmed by me. I have reviewed her note and agree with its content. 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 s/p RT to bilateral globes and optic nerves (3600cGy/20 fx) completed 10/21/2017. The patient returns for f/u. KPS-90. Images were reviewed. A/P: Clinically doing well. We will see her again in four months in coordinated follow up with Dr. Power with MRI brain. She will see Dr. Hogan in ophthalmology for exam tomorrow. Mago Ramirez MD cc: Ricardo Carias MD [address] [place] [address] [place] [address] Dr. Claritza Power MD- [facility] Dr. 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 LEVOTHYROXINE 75 MCG TABLET Take 1 tablet by mouth once d* Problem List As Of Date 06/17/2018 Noted Resolved Vitritis of right eye [H43.21] INVALID FOR* More... Elevated blood-pressure reading without diagnos*INVALID FOR*07/10/2017 Hypothyroidism [E03.9] INVALID FOR* Priority: C More... 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 Diffuse large B-cell lymphoma of extranodal sit*INVALID FOR* BRAO (branch retinal artery occlusion), right [*INVALID FOR* Priority: A More... Disposition: Return in about 4 months (around 10/17/2018). Follow-up and Disposition History Recorded Encounter Status:Closed by MAGO RAMIREZ MD on 06/17/18 PROGRESS Observed: 06/17/2018 Status: COMPLETED Source: BLESSING 9:35 AM [facility] REPOSITORY HNO ID: [id number] Author: Clarizta Houston Service: (none) Author Type: Physician Type: Progress Notes Filed: 06/17/2018 10:26 AM Note Text: [facility] CLINICAL NOTE [facility] Solid Tumor Oncology PATIENT NAME: Amy Colorado [facility] NO.: [id number] ATTENDING PHYSICIAN: Claritza Houston MD DATE OF SERVICE: June 17, 2018 DIAGNOSIS: Vitreo-retinal B-cell lymphoma. HISTORY OF PRESENT ILLNESS: March 2017: Pt developed cobweb-like floaters and blurred vision in the right eye. Started prednisone for bronchitis - during this time eye symptoms unchanged Jun 2017: Vitrectomy atypical large cells. Flow cytometry positive for B-cell lymphoma. CT chest/abdomen/pelvis, LP, MRI brain, HIV1 and 2 all negative. Jul 2017: Began intravititreal methotrexate. Aug 2017: Developed central retinal artery occlusion OD necessitating discontinuation of ivit chemo Oct 2017: Radiation to bilateral globes and optic nerves complete CURRENT MANAGEMENT: None SUBJECTIVE: July 18, 2017 - Currently, the patient reports improvement in eye symptoms including floaters following vitrectomy . Patient denies WINSLOW, weakness, numbness, difficulty walking, difficulty using arms, syncope, seizures, speech difficulty, memory loss, night sweats or weight loss. September 11, 2017 - Here for follow up to develop management plan. She has blurry vision but no other symptoms. December 17, 2017 - Here for follow up. Has felt fatigue since last week of radiation. She is able to do her activities but she states she is slower and has less stamina. She states this reminds her of hypothyroidism before she was treated. Has right eye blurriness and left eye floaters and webs. March 20, 2018 - Here for follow up. Her right sided vision is blurry, attributed to cataract for which she may have resection. Left sided vision slightly improved; fewer floaters. June 17, 2018 - Here for follow up. Feels OK - traveling a lot to see children and and grandchildren. No symptoms except vision which is unchanged. 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 Place of jain: Tobacco: Smoked on rare occasions in teens and early 20s, no h/o smoking in the past 40 years. 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 Disp: Rfl: hydrOXYzine pamoate (VISTARIL) 25 mg capsule Take 25 mg by mouth as needed. Disp: Rfl: levothyroxine (SYNTHROID) 75 mcg tablet Take 1 tablet by mouth once daily as needed. Disp: Rfl: No current facility-administered medications for this visit. ALLERGIES: Please see EPIC ALLERGIES Allergen Reactions - Amoxicillin GI Upset headache FAMILY HISTORY: FAMILY HISTORY Problem Relation Age of Onset - Lymphoma (Unclear type) Father Late 70s; Did respond to chemotherapy. was apparently unrelated to lymphoma. - Cataract Mother - Bone marrow problem (Specifics unclear) Mother Mother was seen by an oncologist in her late 80s, had bone marrow aspiration/biopsy done; at the age of 91. - Neuroblastoma Granddaughter Diagnosed at the age of 4; currently being treated at [facility]. - Brain tumor (Unlcear type) Brother Diagnosed at 68; Was treated in [facility] with surgical resection, XRT and chemotherapy (oral agent). within 7 months of diagnosis. No other history of cancer in first degree relatives PHYSICAL EXAMINATION: Patient is in no distress. Sclerae and conjunctivae are clear. Right pupil dilated (pt currently on a mydriatic agent). Oropharynx is normal. There is no cervical, supraclavicular, axillary or inguinal lymphadenopathy. Heart is regular. Lungs are clear. Abdomen is soft and nontender. Extremities have no edema. Mental status: clear. Speech: fluent. Gait: stable IMAGING - MRI BRAIN: Stable MRI of the brain compared to 03/19/2018 without evidence of an acute intracranial process, mass, or pathologic enhancement to suggest intracranial metastatic disease. KPS: 80 : Pt post-menopausal. IMPRESSION (June 17, 2018): Primary vitreo-retinal B-cell lymphoma (PVRL). No parenchymal disease. Will continue to follow. PLAN (June 17, 2018): MRI q [address] Hogan and I Claritza Houston MD cc: Thad Hogan MD - [facility] Mago Ramirez MD - [facility] Ricardo Carias MD - [facility] Observed: 06/17/2018 Status: COMPLETED Source: BLESSING 9:10 AM [facility] REPOSITORY Office Visit (NSCAMN) AMY COLORADO ([id number]) 1950 F Date Time Provider Department 06/17/18 9:10 AM CLARITZA HOUSTON NSCAMN During your visit today, we recorded the following information about you: Temperature Pulse Respiration Blood pressure 98 degrees 70/minute 16/minute 143/74 Weight 62.6 kg Marilyn Ayala RN, RN 06/17/2018 9:38 AM Signed Additional intake questions: Has the patient had nausea, vomiting, diarrhea, constipation, fatigue for > 1 week? None of the above Does the patient have a decreased appetite? No Does patient want to see a Irrigator Overhead? No (yes to any of above refer patient to schedulers for dietitian appointment) ) Does patient have any new or increased numbness or tingling of extremities? No Is patient interested in fertility information? No Does patient need any prescription refills? No Electronically Signed By: LYDIA Clifton MD 06/17/2018 10:26 AM Signed [facility] CLINICAL NOTE [facility] Solid Tumor Oncology PATIENT NAME: Amy Colorado [facility] NO.: [id number] ATTENDING PHYSICIAN: Claritza Houston MD DATE OF SERVICE: June 17, 2018 DIAGNOSIS: Vitreo-retinal B-cell lymphoma. HISTORY OF PRESENT ILLNESS: March 2017: Pt developed cobweb-like floaters and blurred vision in the right eye. Started prednisone for bronchitis - during this time eye symptoms unchanged Jun 2017: Vitrectomy atypical large cells. Flow cytometry positive for B-cell lymphoma. CT chest/abdomen/pelvis, LP, MRI brain, HIV1 and 2 all negative. Jul 2017: Began intravititreal methotrexate. Aug 2017: Developed central retinal artery occlusion OD necessitating discontinuation of ivit chemo Oct 2017: Radiation to bilateral globes and optic nerves complete CURRENT MANAGEMENT: None SUBJECTIVE: July 18, 2017 - Currently, the patient reports improvement in eye symptoms including floaters following vitrectomy . Patient denies WINSLOW, weakness, numbness, difficulty walking, difficulty using arms, syncope, seizures, speech difficulty, memory loss, night sweats or weight loss. September 11, 2017 - Here for follow up to develop management plan. She has blurry vision but no other symptoms. December 17, 2017 - Here for follow up. Has felt fatigue since last week of radiation. She is able to do her activities but she states she is slower and has less stamina. She states this reminds her of hypothyroidism before she was treated. Has right eye blurriness and left eye floaters and webs. March 20, 2018 - Here for follow up. Her right sided vision is blurry, attributed to cataract for which she may have resection. Left sided vision slightly improved; fewer floaters. June 17, 2018 - Here for follow up. Feels OK - traveling a lot to see children and and grandchildren. No symptoms except vision which is unchanged. 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 Place of jain: Tobacco: Smoked on rare occasions in teens and early 20s, no h/o smoking in the past 40 years. 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 Disp: Rfl: hydrOXYzine pamoate (VISTARIL) 25 mg capsule Take 25 mg by mouth as needed. Disp: Rfl: levothyroxine (SYNTHROID) 75 mcg tablet Take 1 tablet by mouth once daily as needed. Disp: Rfl: No current facility-administered medications for this visit. ALLERGIES: Please see EPIC ALLERGIES Allergen Reactions - Amoxicillin GI Upset headache FAMILY HISTORY: FAMILY HISTORY Problem Relation Age of Onset - Lymphoma (Unclear type) Father Late 70s; Did respond to chemotherapy. was apparently unrelated to lymphoma. - Cataract Mother - Bone marrow problem (Specifics unclear) Mother Mother was seen by an oncologist in her late 80s, had bone marrow aspiration/biopsy done; at the age of 91. - Neuroblastoma Granddaughter Diagnosed at the age of 4; currently being treated at [facility]. - Brain tumor (Unlcear type) Brother Diagnosed at 68; Was treated in [facility] with surgical resection, XRT and chemotherapy (oral agent). within 7 months of diagnosis. No other history of cancer in first degree relatives PHYSICAL EXAMINATION: Patient is in no distress. Sclerae and conjunctivae are clear. Right pupil dilated (pt currently on a mydriatic agent). Oropharynx is normal. There is no cervical, supraclavicular, axillary or inguinal lymphadenopathy. Heart is regular. Lungs are clear. Abdomen is soft and nontender. Extremities have no edema. Mental status: clear. Speech: fluent. Gait: stable IMAGING - MRI BRAIN: Stable MRI of the brain compared to 03/19/2018 without evidence of an acute intracranial process, mass, or pathologic enhancement to suggest intracranial metastatic disease. KPS: 80 : Pt post-menopausal. IMPRESSION (June 17, 2018): Primary vitreo-retinal B-cell lymphoma (PVRL). No parenchymal disease. Will continue to follow. PLAN (June 17, 2018): MRI q [address] 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 LEVOTHYROXINE 75 MCG TABLET Take 1 tablet by mouth once d* Problem List As Of Date 06/17/2018 Noted Resolved Vitritis of right eye [H43.21] INVALID FOR* More... Elevated blood-pressure reading without diagnos*INVALID FOR*07/10/2017 Hypothyroidism [E03.9] INVALID FOR* Priority: C More... 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 Diffuse large B-cell lymphoma of extranodal sit*INVALID FOR* BRAO (branch retinal artery occlusion), right [*INVALID FOR* Priority: A More... Visit Notes: >> Marilyn (Lydia) LYDIA Ayala Tuedith Jun 17, 2018 9:13 AM Status: Signed Additional intake questions: Has the patient had nausea, vomiting, diarrhea, constipation, fatigue for > 1 week? None of the above Does the patient have a decreased appetite? No Does patient want to see a Irrigator Overhead? No (yes to any of above refer patient to schedulers for dietitian appointment) ) Does patient have any new or increased numbness or tingling of extremities? No Is patient interested in fertility information? No Does patient need any prescription refills? No Electronically Signed By: Marilyn Ayala RN Prescriptions ordered this encounter Disp Refills Start End IV CONTRAST (RADIOLOGY PROCEDURE) 1 Ea* 0 06/17/2018 06/17/2018 Class: In Office Sig: MRI Brain Inject, intravenously, once for 1 dose.No IV access, insert saline lock prior to beginning of sedation, infusion, injection of imaging exam.Discontinue saline lock post exam. If Pt. has a central line or IVAD, may access for administration according to line specific nursing protocol.Once exam is complete flush line and de-access according to line specific nursing protocol in the MR contrast administration guidelines link Medications Discontinued During This Encounter iv contrast (will be provided with r* 1 Ea* 0 06/17/2018 06/17/2018 Class: In Office Sig: MRI Brain Inject, intravenously, once for 1 dose.No IV access, insert saline lock prior to beginning of sedation, infusion, injection of imaging exam.Discontinue saline lock post exam. If Pt. has a central line or IVAD, may access for administration according to line specific nursing protocol.Once exam is complete flush line and de-access according to line specific nursing protocol in the MR contrast administration guidelines link Disc: Reason for discontinue is not on file. Disposition: Return in about 3 months (around 09/17/2018). Follow-up and Disposition History Recorded Encounter Status:Closed by CLARITZA HOUSTON MD on 06/17/18 MRI BRAIN WO/W Observed: 06/16/2018 Status: F Source: BLESSING IVCON 9:15 AM [facility] REPOSITORY * * *Final Report* * * DATE OF EXAM: Jun 16 2018 9:15AM [facility] [id number] - MRI BRAIN WO/W IVCON / PROCEDURE REASON: Non-Hodgkin lymphoma, unspecified, extranodal and solid organ sites * * * * Physician Interpretation * * * * EXAMINATION: MRI BRAIN WO/W IVCON CLINICAL HISTORY: Non-Hodgkin lymphoma, unspecified, extranodal and solid organ sites History of ocular lymphoma of the right eye. TECHNIQUE: Routine brain MRI protocol without and with contrast including diffusion images. MQ: [id number] Contrast: 11ml mL Dotarem IV COMPARISON: MRI brain 03/19/2018, 12/16/2017, MRI ORBIT 09/11/2017, 07/03/2017 RESULT: Acute Change: There is no evidence of an acute intracranial process. Hemorrhage: No evidence of prior parenchymal hemorrhage on the gradient echo images. Mass Lesion/ Mass Effect: No evidence of an intracranial mass or extra-axial fluid collection. No abnormal parenchymal or leptomeningeal enhancement is noted following contrast administration. No significant mass effect. Chronic Change: The white matter is within normal limits of signal intensity for age. Parenchyma: No significant volume loss for age. The brain parenchyma is otherwise within normal limits of signal intensity and morphology. Ventricles: Normal caliber and morphology. Skull Base: Hypothalamic and pituitary region are grossly normal. Craniocervical junction is normal. No significant marrow replacement process. Vasculature: Major intracranial arterial structures, and dural venous sinuses show typical flow void, suggesting patency by spin echo criteria. Other: Mucous retention cyst in the right maxillary sinus. Mild mucosal maxillary sinuses and anterior ethmoid air cells. The visualized paranasal sinuses and mastoid air cells are otherwise clear. Bilateral orbits are symmetric and within normal limits. The intraconal and extraconal fat planes are maintained. No evidence of an orbital mass. The remainder of the extracranial soft tissues are unremarkable. IMPRESSION: Stable MRI of the brain compared to 03/19/2018 without evidence of an acute intracranial process, mass, or pathologic enhancement to suggest intracranial metastatic disease. Office Cashier: MACY Transcribe Date/Time: Jun 16 2018 9:58A Dictated by : MARSHA LEIVA MD This examination was interpreted and the report reviewed and electronically signed by: MARSHA LEIVA MD on Jun 16 2018 10:08AM EST [id number] Observed: 06/16/2018 Status: COMPLETED Source: BLESSING 9:06 AM [facility] REPOSITORY O ID: [id number] Author: Anisa () Tacho Roque Service: (none) Author Type: Import/Export Specialist Type: Progress Notes Filed: 06/16/2018 9:07 AM Note Text: Radiology Service Progress Note PATIENT NAME: Amy Colorado DATE OF SERVICE: June 16, 2018 TIME: 9:06 AM PATIENT IDENTITY VERIFICATION COMPLETED USING TWO (2) METHODS: Patient confirmed name verbally and Date of . PATIENT GENDER DATA: Female. status: : No status: NO. PATIENT RELEVANT IMPLANT DATA REVIEWED: Yes CONTRAST INDUCED NEPHROPATHY RISK FACTORS: Patient age > 60 years CREATININE: Creatinine Date Value Ref Range Status 08/15/2017 0.95 0.58 - 0.96 mg/dL Final 07/16/2017 0.80 0.58 - 0.96 mg/dL Final 07/01/2017 0.91 0.58 - 0.96 mg/dL Final eGFR-All Other Races Date Value Ref Range Status 08/15/2017 59 . Final Comment: eGFR (Estimated GFR) Units of measure: mL/min/1.73 meters squared eGFR is derived from the reexpressed MDRD Study equation using the following parameters: serum creatinine, age, gender and race. The creatinine assay has been calibrated to be traceable to IDMS. An eGFR <60 mL/min/1.73m2 for >3 months is consistent with chronic kidney disease. Refer to KDOQI guidelines for clinical interpretation. In patients with unstable renal function, e.g. those with acute kidney injury, the eGFR may not accurately reflect actual GFR. eGFR- Date Value Ref Range Status 08/15/2017 >60 Final P.O.C.T. RESULTS: POC done: Yes, See Lab Tab June 16, 2018 RADIOLOGIST NOTIFIED?: No ALLERGIES: Reviewed and unchanged CONTRAST ALLERGY: NO. PERIPHERAL IV ACCESS: Ambulatory: IV type: A peripheral IV was started in the Right antecubital site with a Angio cath: 22 gauge., Site assessment: Clean,Dry and Intact, Site disposition Discontinued RADIOLOGY DEPARTMENT: MR; Exam(s) Completed: Head: Routine Brain SIGNED BY: RT Faye June 16, 2018 9:06 AM [place] CREATININE Collected: 06/16/2018 Status: F Source: BLESSING 8:36 AM [facility] REPOSITORY TYPE CODE TESTS RESULT OUT OF REFERENCE UNITS RANGE LAB WCRET 0.7-1.4 mg/dL [place] Creatinine 0.9 PROGRESS Observed: 03/21/2018 Status: COMPLETED Source: BLESSING 9:10 AM [facility] REPOSITORY HNO ID: [id number] Author: Thad Hogan Service: (none) Author Type: Physician Type: Progress Notes Filed: 03/21/2018 9:26 AM Note Text: Lymphoma right eye with retinal vasculitis, 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) now with BRAO right eye: Imaging: - FA 03/21/2018 shows no active leakage right eye, resolution of leakage left eye s/p 25gPPV/diagnostic vitrectomy/pFAx 07/10/17 - Doing well / IOP acceptable - flow cytometry and cytology positive for lymphoma - s/p MTX #7 (08/12/17) - developed BRAO right eye after last MTX injection and was showing signs of activity in her other eye - was admitted and negative w/u for etiology of BRAO - completed XRT with rao to both eyes 10/21/17 - OCT possibly early RPE nodularity superotemporally right eye will monitor, normal and stable left eye - observe - f/u 3 months Cataract, OD>OS - visually significant - stable as above, okay to proceed with CE/IOL, patient would like to hold off for now I have confirmed and edited as necessary the relevant ophthalmic history, ROS, and the neuro exam findings as obtained by others. I have seen and examined this patient. I have discussed the case and the management of this patient's care with the Resident/Fellow, if applicable. I also have reviewed and agree with the assessment and plan as stated above and agree with all of its relevant components. Thad Hogan MD PROGRESS Observed: 03/20/2018 Status: COMPLETED Source: BLESSING 9:52 AM [facility] [place] REPOSITORY HNO ID: [id number] Author: Claritza Houston Service: (none) Author Type: Physician Type: Progress Notes Filed: 03/20/2018 10:10 AM Note Text: [facility] CLINICAL NOTE [facility] Solid Tumor Oncology [id number] ATTENDING PHYSICIAN: Claritza Houston MD DATE OF SERVICE: March 20, 2018 DIAGNOSIS: Vitreo-retinal B-cell lymphoma. HISTORY OF PRESENT ILLNESS: March 2017: Pt developed cobweb-like floaters and blurred vision in the right eye. Started prednisone for bronchitis - during this time eye symptoms unchanged Jun 2017: Vitrectomy atypical large cells. Flow cytometry positive for B-cell lymphoma. CT chest/abdomen/pelvis, LP, MRI brain, HIV1 and 2 all negative. Jul 2017: Began intravititreal methotrexate. Aug 2017: Developed central retinal artery occlusion OD necessitating discontinuation of ivit chemo Oct 2017: Radiation to bilateral globes and optic nerves complete CURRENT MANAGEMENT: None SUBJECTIVE: July 18, 2017 - Currently, the patient reports improvement in eye symptoms including floaters following vitrectomy . Patient denies WINSLOW, weakness, numbness, difficulty walking, difficulty using arms, syncope, seizures, speech difficulty, memory loss, night sweats or weight loss. September 11, 2017 - Here for follow up to develop management plan. She has blurry vision but no other symptoms. December 17, 2017 - Here for follow up. Has felt fatigue since last week of radiation. She is able to do her activities but she states she is slower and has less stamina. She states this reminds her of hypothyroidism before she was treated. Has right eye blurriness and left eye floaters and webs. March 20, 2018 - Here for follow up. Her right sided vision is blurry, attributed to cataract for which she may have resection. Left sided vision slightly improved; fewer floaters. 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 Place of jain: Tobacco: Smoked on rare occasions in teens and early 20s, no h/o smoking in the past 40 years. 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 Disp: Rfl: hydrOXYzine pamoate (VISTARIL) 25 mg capsule Take 25 mg by mouth as needed. Disp: Rfl: levothyroxine (SYNTHROID) 75 mcg tablet Take 1 tablet by mouth once daily as needed. Disp: Rfl: No current facility-administered medications for this visit. ALLERGIES: Please see EPIC ALLERGIES Allergen Reactions - Amoxicillin GI Upset headache FAMILY HISTORY: FAMILY HISTORY Problem Relation Age of Onset - Lymphoma (Unclear type) Father Late 70s; Did respond to chemotherapy. was apparently unrelated to lymphoma. - Cataract Mother - Bone marrow problem (Specifics unclear) Mother Mother was seen by an oncologist in her late 80s, had bone marrow aspiration/biopsy done; at the age of 91. - Neuroblastoma Granddaughter Diagnosed at the age of 4; currently being treated at [facility]. - Brain tumor (Unlcear type) Brother Diagnosed at 68; Was treated in [facility] with surgical resection, XRT and chemotherapy (oral agent). within 7 months of diagnosis. No other history of cancer in first degree relatives PHYSICAL EXAMINATION: Patient is in no distress. Sclerae and conjunctivae are clear. Right pupil dilated (pt currently on a mydriatic agent). Oropharynx is normal. There is no cervical, supraclavicular, axillary or inguinal lymphadenopathy. Heart is regular. Lungs are clear. Abdomen is soft and nontender. Extremities have no edema. Mental status: clear. Speech: fluent. Gait: stable IMAGING - MRI BRAIN: No evidence of an acute intracranial process. ?No MR evidence of No evidence of an acute intracranial process. ?No MR evidence of intracranial metastatic disease. KPS: 80 : Pt post-menopausal. IMPRESSION: Primary vitreo-retinal B-cell lymphoma (PVRL). No parenchymal disease. Will continue to follow. PLAN: MRI q 3 months in [place]. Claritza Houston MD cc: Thad Hogan MD - [facility] Mago Ramirez MD - [facility] Ricardo Carias MD - CNOV Observed: 03/20/2018 Status: COMPLETED Source: BLESSING 9:40 AM [facility] REPOSITORY Office Visit (NSCAMN) AMY [place]O ([id number]) 1950 F Date Time Provider Department 03/20/18 9:40 AM CLARITZA HOUSTON NSCAMN During your visit today, we recorded the following information about you: Temperature Pulse Respiration Blood pressure 98.1 degrees 65/minute 16/minute 131/85 Weight Height 63.2 kg 1.734 m Imelda Brannon ([place])CARO 03/20/2018 9:46 AM Signed Additional intake questions: Has the patient had nausea, vomiting, diarrhea, constipation, fatigue for > 1 week? None of the above Does the patient have a decreased appetite? No Does patient want to see a Irrigator Overhead? No (yes to any of above refer patient to schedulers for dietitian appointment) ) Does patient have any new or increased numbness or tingling of extremities? No Is patient interested in fertility information? NA Does patient need any prescription refills? No Electronically Signed By: CARO Zamarripa David 03/20/2018 10:10 AM Signed [facility] CLINICAL NOTE [facility] Solid Tumor Oncology PATIENT NAME: Amy [place] [facility] NO.: [id number] ATTENDING PHYSICIAN: Claritza Houston MD DATE OF SERVICE: March 20, 2018 DIAGNOSIS: Vitreo-retinal B-cell lymphoma. HISTORY OF PRESENT ILLNESS: March 2017: Pt developed cobweb-like floaters and blurred vision in the right eye. Started prednisone for bronchitis - during this time eye symptoms unchanged Jun 2017: Vitrectomy atypical large cells. Flow cytometry positive for B-cell lymphoma. CT chest/abdomen/pelvis, LP, MRI brain, HIV1 and 2 all negative. Jul 2017: Began intravititreal methotrexate. Aug 2017: Developed central retinal artery occlusion OD necessitating discontinuation of ivit chemo Oct 2017: Radiation to bilateral globes and optic nerves complete CURRENT MANAGEMENT: None SUBJECTIVE: July 18, 2017 - Currently, the patient reports improvement in eye symptoms including floaters following vitrectomy . Patient denies WINSLOW, weakness, numbness, difficulty walking, difficulty using arms, syncope, seizures, speech difficulty, memory loss, night sweats or weight loss. September 11, 2017 - Here for follow up to develop management plan. She has blurry vision but no other symptoms. December 17, 2017 - Here for follow up. Has felt fatigue since last week of radiation. She is able to do her activities but she states she is slower and has less stamina. She states this reminds her of hypothyroidism before she was treated. Has right eye blurriness and left eye floaters and webs. March 20, 2018 - Here for follow up. Her right sided vision is blurry, attributed to cataract for which she may have resection. Left sided vision slightly improved; fewer floaters. 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 Place of jain: Tobacco: Smoked on rare occasions in teens and early 20s, no h/o smoking in the past 40 years. 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 Disp: Rfl: hydrOXYzine pamoate (VISTARIL) 25 mg capsule Take 25 mg by mouth as needed. Disp: Rfl: levothyroxine (SYNTHROID) 75 mcg tablet Take 1 tablet by mouth once daily as needed. Disp: Rfl: No current facility-administered medications for this visit. ALLERGIES: Please see EPIC ALLERGIES Allergen Reactions - Amoxicillin GI Upset headache FAMILY HISTORY: FAMILY HISTORY Problem Relation Age of Onset - Lymphoma (Unclear type) Father Late 70s; Did respond to chemotherapy. was apparently unrelated to lymphoma. - Cataract Mother - Bone marrow problem (Specifics unclear) Mother Mother was seen by an oncologist in her late 80s, had bone marrow aspiration/biopsy done; at the age of 91. - Neuroblastoma Granddaughter Diagnosed at the age of 4; currently being treated at [facility]. - Brain tumor (Unlcear type) Brother Diagnosed at 68; Was treated in [facility] with surgical resection, XRT and chemotherapy (oral agent). within 7 months of diagnosis. No other history of cancer in first degree relatives PHYSICAL EXAMINATION: Patient is in no distress. Sclerae and conjunctivae are clear. Right pupil dilated (pt currently on a mydriatic agent). Oropharynx is normal. There is no cervical, supraclavicular, axillary or inguinal lymphadenopathy. Heart is regular. Lungs are clear. Abdomen is soft and nontender. Extremities have no edema. Mental status: clear. Speech: fluent. Gait: stable IMAGING - MRI BRAIN: No evidence of an acute intracranial process. ?No MR evidence of No evidence of an acute intracranial process. ?No MR evidence of intracranial metastatic disease. KPS: 80 : Pt post-menopausal. IMPRESSION: Primary vitreo-retinal B-cell lymphoma (PVRL). No parenchymal disease. Will continue to follow. PLAN: MRI q 3 months in [place]. 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 If Pt. has a central line or IVAD, may access for administration according to line specific nursing protocol.Once exam is complete flush line and de- access according to line specific nursing protocol in the MR contrast administration guidelines linkDisp: 1 EachRfl: 0 Prescriptions as of 03/20/2018 Sig: IV CONTRAST (RADIOLOGY PROCED* MRI Brain Inject, intravenous* ADVIL ORAL Take 4 tablets by mouth as ne* HYDROXYZINE PAMOATE 25 MG CAP* Take 25 mg by mouth as needed. LEVOTHYROXINE 75 MCG TABLET Take 1 tablet by mouth once d* Medication notes this encounter HYDROXYZINE PAMOATE 25 MG CAPSULE >> Imelda Brannon Lpn, LPN 03/20/2018 9:43 AM >> IMELDA BRANNON March 20, 2018 9:43 AM LEVOTHYROXINE 75 MCG TABLET >> Imelda Brannon Lpn, LPN 03/20/2018 9:43 AM >> IMELDA BRANNON Jeanie March 20, 2018 9:43 AM Problem List As Of Date 03/20/2018 Noted Resolved Vitritis of right eye [H43.21] INVALID FOR* More... Elevated blood-pressure reading without diagnos*INVALID FOR*07/10/2017 Hypothyroidism [E03.9] INVALID FOR* Priority: C More... 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 Diffuse large B-cell lymphoma of extranodal sit*INVALID FOR* BRAO (branch retinal artery occlusion), right [*INVALID FOR* Priority: A More... Visit Notes: >> Imelda Brannon ([place]), CARO Jeanie March 20, 2018 9:44 AM Status: Signed Additional intake questions: Has the patient had nausea, vomiting, diarrhea, constipation, fatigue for > 1 week? None of the above Does the patient have a decreased appetite? No Does patient want to see a Irrigator Overhead? No (yes to any of above refer patient to schedulers for dietitian appointment) ) Does patient have any new or increased numbness or tingling of extremities? No Is patient interested in fertility information? NA Does patient need any prescription refills? No Electronically Signed By: Imelda Brannon LPN Prescriptions ordered this encounter Disp Refills Start End IV CONTRAST (RADIOLOGY PROCEDURE) 1 Ea* 0 03/20/2018 03/21/2018 Class: In Office Sig: MRI Brain Inject, intravenously, once for 1 dose.No IV access, insert saline lock prior to beginning of sedation, infusion, injection of imaging exam.Discontinue saline lock post exam. If Pt. has a central line or IVAD, may access for administration according to line specific nursing protocol.Once exam is complete flush line and de-access according to line specific nursing protocol in the MR contrast administration guidelines link Disposition: Return in about 3 months (around 06/20/2018). Follow-up and Disposition History Recorded Encounter Status:Closed by CLARITZA HOUSTON MD on 03/20/18 MRI BRAIN WO/W Observed: 03/19/2018 Status: F Source: BLESSING IVCON 9:26 AM [facility] [place] REPOSITORY * * *Final Report* * * DATE OF EXAM: Mar 19 2018 9:26AM WR [id number] - MRI BRAIN WO/W IVCON / PROCEDURE REASON: Non-Hodgkin lymphoma, unspecified, extranodal and solid organ sites * * * * Physician Interpretation * * * * EXAMINATION: MRI BRAIN WO/W IVCON HISTORY: Non-Hodgkin lymphoma, unspecified, extranodal and solid organ sites Pt with Ocular Lymphoma who will be continuing on observation. TECHNIQUE: Routine brain MRI protocol without and with contrast including diffusion images. MQ: [id number] Contrast: 12 mL Dotarem IV COMPARISON: Most recent MRI brain from 12/16/2017, MRI ORBIT from 09/11/2017, MRI brain from 07/03/2017 RESULT: Acute Change: There is no evidence of restricted diffusion to suggest an acute infarct. Hemorrhage: No evidence of prior parenchymal hemorrhage on the gradient echo images. Mass Lesion/ Mass Effect: No evidence of an intracranial mass or extra-axial fluid collection. No abnormal parenchymal or leptomeningeal enhancement is noted following contrast administration. No significant mass effect. Chronic Change: The white matter is within normal limits of signal intensity for age. Parenchyma: No significant volume loss for age. The brain parenchyma is otherwise within normal limits of signal intensity and morphology. Ventricles: Normal caliber and morphology. Skull Base: Hypothalamic and pituitary region are grossly normal. Craniocervical junction is normal. No significant marrow replacement process. Vasculature: Major intracranial arterial structures, and dural venous sinuses show typical flow void, suggesting patency by spin echo criteria. Other: The visualized paranasal sinuses are clear except for minimal mucosal thickening involving scattered ethmoid air cells and right maxillary sinus. The mastoid air cells are clear. The orbits and extracranial soft tissues are unremarkable. IMPRESSION: No evidence of an acute intracranial process. No MR evidence of intracranial metastatic disease. Office Cashier: MACY Transcribe Date/Time: Mar 19 2018 10:27A Dictated by : WALI MACKEY MD This examination was interpreted and the report reviewed and electronically signed by: EYAL BONILLA MD on Mar 19 2018 11:42AM EST [id number] PROGRESS Observed: 03/19/2018 Status: COMPLETED Source: BLESSING 9:25 AM [facility] REPOSITORY HNO ID: [id number] Author: Alise Crawford Service: (none) Author Type: (none) Type: Progress Notes Filed: 03/19/2018 9:26 AM Note Text: Radiology Service Progress Note PATIENT NAME: Amy [place] DATE OF SERVICE: March 19, 2018 TIME: 9:25 AM PATIENT IDENTITY VERIFICATION COMPLETED USING TWO (2) METHODS: Patient confirmed name verbally and Date of . PATIENT GENDER DATA: Female. status: : No status: NO. PATIENT RELEVANT IMPLANT DATA REVIEWED: Yes CONTRAST INDUCED NEPHROPATHY RISK FACTORS: Patient age > 60 years CREATININE: Creatinine Date Value Ref Range Status 08/15/2017 0.95 0.58 - 0.96 mg/dL Final 07/16/2017 0.80 0.58 - 0.96 mg/dL Final 07/01/2017 0.91 0.58 - 0.96 mg/dL Final eGFR-All Other Races Date Value Ref Range Status 08/15/2017 59 . Final Comment: eGFR (Estimated GFR) Units of measure: mL/min/1.73 meters squared eGFR is derived from the reexpressed MDRD Study equation using the following parameters: serum creatinine, age, gender and race. The creatinine assay has been calibrated to be traceable to IDMS. An eGFR <60 mL/min/1.73m2 for >3 months is consistent with chronic kidney disease. Refer to KDOQI guidelines for clinical interpretation. In patients with unstable renal function, e.g. those with acute kidney injury, the eGFR may not accurately reflect actual GFR. eGFR- Date Value Ref Range Status 08/15/2017 >60 Final P.O.C.T. RESULTS: POC done: Yes, See Lab Tab March 19, 2018 RADIOLOGIST NOTIFIED?: No ALLERGIES: Reviewed and unchanged CONTRAST ALLERGY: NO. PERIPHERAL IV ACCESS: Ambulatory: IV type: A peripheral IV was started in the Right antecubital site with a Angio cath: 22 gauge., Site assessment: Clean,Dry and Intact, Site disposition Discontinued RADIOLOGY DEPARTMENT: MR; Exam(s) Completed: Head: Routine Brain SIGNED BY: Alise Mccullough Rt March 19, 2018 9:25 AM CARO CREATININE Collected: 03/19/2018 Status: F Source: BLESSING 8:14 AM [facility] REPOSITORY TYPE CODE TESTS RESULT OUT OF REFERENCE UNITS RANGE LAB WCRET 0.7-1.4 mg/dL [place] Creatinine 0.9 PROGRESS Observed: 02/03/2018 Status: COMPLETED Source: BLESSING 9:55 AM [facility] [place] REPOSITORY HNO ID: [id number] Author: Thad Hogan Service: (none) Author Type: Physician Type: Progress Notes Filed: 02/03/2018 10:05 AM Note Text: Lymphoma right eye with retinal vasculitis, 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) now with BRAO right eye: Imaging: - FA 12/02/2017 shows no active leakage right eye, resolution of leakage left eye s/p 25gPPV/diagnostic vitrectomy/pFAx 07/10/17 - Doing well / IOP acceptable - flow cytometry and cytology positive for lymphoma - s/p MTX #7 (08/12/17) - Prior OCT showed resolution of very small, possibly early RPE nodularity temporally right eye, normal and stable left eye - developed BRAO right eye after last MTX injection and was showing signs of activity in her other eye - was admitted and negative w/u for etiology of BRAO - completed XRT with rao to both eyes 10/21/17 - doing well and no signs of active disease - f/u 2 months Cataract, OD>OS - visually significant - consider cataract surgery if stable after next visit I have confirmed and edited as necessary the relevant ophthalmic history, ROS, and the neuro exam findings as obtained by others. I have seen and examined this patient. I have discussed the case and the management of this patient's care with the Resident/Fellow, if applicable. I also have reviewed and agree with the assessment and plan as stated above and agree with all of its relevant components. Thad Hogan MD FREE T3 Collected: 01/22/2018 Status: F Source: [place] 2:35 PM [facility] REPOSITORY TYPE CODE TESTS RESULT OUT OF RANGE REFERENCE UNITS LAB [id number] 2.18-3.98 pg/mL Normal FREE T3 2.5 Performed By: #### L501.13910, L501.9520, L506.0400 #### [facility] [address] [place], [address] THYROID STIM HORMONE Collected: 01/22/2018 Status: F Source: [place] (TSH) 2:35 PM [facility] REPOSITORY TYPE CODE TESTS RESULT OUT OF RANGE REFERENCE UNITS LAB L501.9520 0.358-3.74 uIU/mL Normal TSH 1.66 Performed By: #### L501.90584, L501.9520, L506.0400 #### [facility] [address] [place], [place], [address] T4 FREE DIRECT Collected: 01/22/2018 Status: F Source: [place] 2:35 PM [facility] REPOSITORY TYPE CODE TESTS RESULT OUT OF RANGE REFERENCE UNITS LAB L506.0400 0.76-1.46 ng/dL Normal T4 FREE 0.97 DIRECT Performed By: #### L501.02386, L501.9520, L506.0400 #### [facility] [address] [place], [place], [address] THYROID PEROXIDASE AB Collected: 01/22/2018 Status: F Source: [place] 2:35 PM [facility] REPOSITORY TYPE CODE TESTS RESULT OUT OF RANGE REFERENCE UNITS LAB L3300.6900 0-34 IU/mL High TPO AB [phone] Result Comment: Performed at: [facility] [id number] Director Heart: Gary Flannery PhD, Phone: [phone] Performed By: #### L3300.6900 #### [facility] (refer to report for specific site) refer to report for address and phone number PROGRESS Observed: 12/17/2017 Status: COMPLETED Source: BLESSING 11:05 AM [facility] [place] REPOSITORY HNO ID: [id number] Author: Claritza Houston Service: (none) Author Type: Physician Type: Progress Notes Filed: 12/17/2017 11:37 AM Note Text: [facility] CLINICAL NOTE [facility] Solid Tumor Oncology PATIENT NAME: Amy Colorado [facility] NO.: [id number] ATTENDING PHYSICIAN: Claritza Houston MD DATE OF SERVICE: December 17, 2017 DIAGNOSIS: Vitreo-retinal B-cell lymphoma. HISTORY OF PRESENT ILLNESS: March 2017: Pt developed cobweb-like floaters and blurred vision in the right eye. Started prednisone for bronchitis - during this time eye symptoms unchanged Jun 2017: Vitrectomy atypical large cells. Flow cytometry positive for B-cell lymphoma. CT chest/abdomen/pelvis, LP, MRI brain, HIV1 and 2 all negative. Jul 2017: Began intravititreal methotrexate. Aug 2017: Developed central retinal artery occlusion OD necessitating discontinuation of ivit chemo Oct 2017: Radiation to bilateral globes and optic nerves complete CURRENT MANAGEMENT: None SUBJECTIVE: July 18, 2017 - Currently, the patient reports improvement in eye symptoms including floaters following vitrectomy . Patient denies [place], weakness, numbness, difficulty walking, difficulty using arms, syncope, seizures, speech difficulty, memory loss, night sweats or weight loss. September 11, 2017 - Here for follow up to develop management plan. She has blurry vision but no other symptoms. December 17, 2017 - Here for follow up. Has felt fatigue since last week of radiation. She is able to do her activities but she states she is slower and has less stamina. She states this reminds her of hypothyroidism before she was treated. Has right eye blurriness and left eye floaters and webs. Grand-daughter has neuroblastoma and has recently had excellent response to immunotherapy and will have surgery to resect SOCIAL HISTORY: [place]: IGGY Elizondo Marital: , Norberto Children: Occupation: Housewife Accompanied today by: sister. Place of jain: Tobacco: Smoked on rare occasions in teens and early 20s, no h/o smoking in the past 40 years. Alcohol: Social PAST MEDICAL HISTORY: PAST MEDICAL HISTORY Diagnosis Date - Arthritis - Diverticulitis - Ectopic 39 yrs. 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 Disp: Rfl: levothyroxine (SYNTHROID) 75 mcg tablet Take 1 tablet by mouth once daily as needed. Disp: Rfl: No current facility-administered medications for this visit. ALLERGIES: Please see EPIC ALLERGIES Allergen Reactions - Amoxicillin GI Upset headache FAMILY HISTORY: FAMILY HISTORY Problem Relation Age of Onset - Lymphoma (Unclear type) Father Late 70s; Did respond to chemotherapy. was apparently unrelated to lymphoma. - Cataract Mother - Bone marrow problem (Specifics unclear) Mother Mother was seen by an oncologist in her late 80s, had bone marrow aspiration/biopsy done; at the age of 91. - Neuroblastoma Granddaughter Diagnosed at the age of 4; currently being treated at [facility]. - Brain tumor (Unlcear type) Brother Diagnosed at 68; Was treated in [facility] with surgical resection, XRT and chemotherapy (oral agent). within 7 months of diagnosis. No other history of cancer in first degree relatives PHYSICAL EXAMINATION: Patient is in no distress. Sclerae and conjunctivae are clear. Right pupil dilated (pt currently on a mydriatic agent). Oropharynx is normal. There is no cervical, supraclavicular, axillary or inguinal lymphadenopathy. Heart is regular. Lungs are clear. Abdomen is soft and nontender. Extremities have no edema. Mental status: clear. Speech: fluent. Gait: stable IMAGING - MRI BRAIN: No MRI evidence of acute intracranial pathology or abnormal enhancement. KPS: 80 : Pt post-menopausal. IMPRESSION: Primary vitreo-retinal B-cell lymphoma (PVRL). Fatigue likely treatment related but with her history of hypothyroidism she will have TFTs by her primary physician. PLAN: MRI q 3 months in [place]. Claritza Houston MD cc: Thad Hogan MD - [facility] Mago Ramirez MD - [facility] Ricardo Carias MD - MRI BRAIN WO/W Observed: 12/16/2017 Status: F Source: BLESSING IVCON 12:09 PM [facility] REPOSITORY * * *Final Report* * * DATE OF EXAM: Dec 16 2017 12:09PM [facility] 0295 - MRI BRAIN WO/W IVCON / PROCEDURE REASON: Other specified types of non-hodgkin lymphoma, lymph nodes of head, face, and ne * * * * Physician Interpretation * * * * Clinical history:Ocular lymphoma Technique: Intracranial mass protocol MRI brain without/with contrast Contrast: Dotarem Contrast Dose (cc): 13 Route of Administration: IV Comparison: Orbital MRI dated 09/11/2017; MRI brain dated 07/03/2017 Result: Age-appropriate brain volume without structural abnormality with no more than trace nonspecific likely chronic small vessel ischemic disease related white matter changes. Negative for restricted diffusion, hemorrhage, mass effect, extra-axial collection, and abnormal enhancement. Minimal paranasal sinus mucosal thickening. Grossly unremarkable orbits. Unremarkable mastoids. The major intracranial vessels are grossly patent as evidenced by normal appearing flow voids although rarely thrombosis/thromboembolus may mimic normal flow void. Impression: No MRI evidence of acute intracranial pathology or abnormal enhancement. Office Cashier: PSCNancy Transcribe Date/Time: Dec 16 2017 12:14P Dictated by : HERNAN BERNAL MD This examination was interpreted and the report reviewed and electronically signed by: HERNAN BERNAL MD on Dec 16 2017 12:18PM EST [id number] PROGRESS Observed: 12/16/2017 Status: COMPLETED Source: BLESSING 11:46 AM [facility] REPOSITORY HNO ID: [id number] Author: Alise Mccullough Rt Service: (none) Author Type: (none) Type: Progress Notes Filed: 12/16/2017 11:47 AM Note Text: Radiology Service Progress Note PATIENT NAME: Amy [place] DATE OF SERVICE: December 16, 2017 TIME: 11:46 AM PATIENT IDENTITY VERIFICATION COMPLETED USING TWO (2) METHODS: Patient confirmed name verbally and Date of . PATIENT GENDER DATA: Female. status: : No status: NO. PATIENT RELEVANT IMPLANT DATA REVIEWED: Yes CONTRAST INDUCED NEPHROPATHY RISK FACTORS: Patient age > 60 years CREATININE: Creatinine Date Value Ref Range Status 08/15/2017 0.95 0.58 - 0.96 mg/dL Final 07/16/2017 0.80 0.58 - 0.96 mg/dL Final 07/01/2017 0.91 0.58 - 0.96 mg/dL Final eGFR-All Other Races Date Value Ref Range Status 08/15/2017 59 . Final Comment: eGFR (Estimated GFR) Units of measure: mL/min/1.73 meters squared eGFR is derived from the reexpressed MDRD Study equation using the following parameters: serum creatinine, age, gender and race. The creatinine assay has been calibrated to be traceable to IDMS. An eGFR <60 mL/min/1.73m2 for >3 months is consistent with chronic kidney disease. Refer to KDOQI guidelines for clinical interpretation. In patients with unstable renal function, e.g. those with acute kidney injury, the eGFR may not accurately reflect actual GFR. eGFR- Date Value Ref Range Status 08/15/2017 >60 Final P.O.C.T. RESULTS: POC done: Yes, See Lab Tab December 16, 2017 RADIOLOGIST NOTIFIED?: No ALLERGIES: Reviewed and unchanged CONTRAST ALLERGY: NO. PERIPHERAL IV ACCESS: Ambulatory: IV type: A peripheral IV was started in the Right antecubital site with a Angio cath: 22 gauge., Site assessment: Clean,Dry and Intact, Site disposition Discontinued RADIOLOGY DEPARTMENT: MR; Exam(s) Completed: Head: Routine Brain SIGNED BY: Alise Mccullough Rt December 16, 2017 11:46 AM [place] CREATININE Collected: 12/16/2017 Status: F Source: BLESSING 10:01 AM [facility] REPOSITORY TYPE CODE TESTS RESULT OUT OF REFERENCE UNITS RANGE LAB WCRET 0.7-1.4 mg/dL [place] Creatinine 0.9 ALLERGIES ALLERGIES DATE TYPE / CODE NAME / CODE REACTION SEVERITY SOURCE 07/01/2017 DRUG AMOXICILLIN GI UPSET [facility] INGREDI/[address] [place] 130660(SNOM Repository ED CT) 04/28/2017 Drug No Known Unknown [place] Allergy/416 Allergies/[id number] [facility] [id number][facility] Repository ENCOUNTERS ENCOUNTERS ADMIT/DISCHARGE ACCOUNT ADMITTING ENCOUNTER LOCATION SOURCE NUMBER CLASS 11/28/2018 [id number] [facility] ing:WOBLAB Repository 10/22/2018/10/28/20 [id number] Ambulatory [address] Repository 10/21/2018/10/22/20 [id number] Ambulatory [address] [place] Repository 10/21/2018/10/22/20 [id number] Ambulatory [address] [place] Repository 10/21/2018/10/21/20 [id number] Ambulatory [address] [place] Repository 06/18/2018/06/23/20 [id number] Ambulatory [address] [place] Repository 06/17/2018/06/18/20 [id number] Ambulatory [address] Repository 06/17/2018/06/17/20 [id number] Ambulatory [address] [place] Repository 06/16/2018/06/17/20 [id number] Ambulatory [address] [place] Repository 06/16/2018/06/16/20 [id number] Ambulatory [address] [place] Repository 03/21/2018/03/25/20 [id number] Ambulatory [address] Repository 03/20/2018/03/20/20 [id number] Ambulatory [address] Repository 03/19/2018/03/19/20 [id number] Ambulatory [address] Repository 03/19/2018/03/20/20 [id number] Ambulatory [address] Repository 02/03/2018/02/07/20 [id number] Ambulatory [address] Repository 01/22/2018 [id number] [facility] [place] [facility] 12/17/2017/12/17/19 [id number] Ambulatory [address] Repository 12/16/2017/12/16/19 [id number] Ambulatory [address] Repository 12/16/2017 [id number] Ambulatory [facility] Repository PAYERS PAYERS ENCOUNTER GUARANTOR PAYER SUBSCRIBER SOURCE 11/28/2018 Amy F Primary Amy F [place] [id number] Insurance:MEDICARE IcemanDOB: [facility] A [address] Number: Repository [id number]: [phone] [id number] [phone] (HP) Date:2018-11-28 11/28/2018 Secondary Amy F [place] Insurance:ANTHEMPolic IcemanDOB: Community y Number: [id number] [id number] Repository Date:[id number] [address]TR: 11/28/2018 Tertiary NOT GIVENUNK [place] Insurance:SELF PAY [facility] Number: Effective Repository Date:2018-11-28 01/22/2018 Amy F Primary Amy F [place] [id number] Insurance:MEDICARE IcemanDOB: [address] Number: Repository [id number]: [id number] [phone] Date:2018-01-22 (HP) 01/22/2018 Secondary Amy F [place] Insurance:ANTHEMPolic IcemanDOB: Community y Number: [id number] [id number] Repository Date:[id number], [place] [address]WG: 01/22/2018 Tertiary NOT GIVENUNK [place] Insurance:SELF PAY [facility]: Effective Repository Date:2018-01-22
== END ==
PROVIDERS: Visit Provider Obstetrics & Gynecology
DX: E03.9 Hypothyroidism, unspecified (principal)
CPT/HCPCS: 36415; 80053; 80061; 84439; 84443; 84481; 85027; 86376

== ENCOUNTER → 2019-08-11 10:24 | Outpatient (CLI) | payer MEDICARE, BC, SELFPAY ==
[2017-04-28 06:02] VITALS: BMI 21.2
[2019-08-11 14:01] LABS: Free T3 1.9 pg/mL (2.18-3.98); T4 Free Direct 1.07 ng/dL (0.76-1.46); Thyroid Stim Hormone (TSH) 0.74 uIU/mL (0.358-3.74)
== END ==
PROVIDERS: Visit Provider Obstetrics & Gynecology
DX: E03.9 Hypothyroidism, unspecified (principal)
CPT/HCPCS: 36415; 84439; 84443; 84481

== ENCOUNTER → 2019-08-19 09:35 | Outpatient (CLI) | payer MEDICARE, BC, SELFPAY ==
[2017-04-28 06:02] VITALS: BMI 21.2
--- NOTE | 2019-08-19 10:00 | BI_ITS ---
BILATERAL DIGITAL MAMMOGRAM WITH TOMOSYNTHESIS: Mediolateraloblique and craniocaudal views demonstrate no evidence of dominant parenchymal masses. No cluster of microcalcifications or architectural distortion is seen. No evidence of skin thickening is identified There has been no significant change since 07/25/2016 . Breast Density: The breast tissue is heterogeneously dense, which may obscure small masses. CAD was used to assist in final assessment. IMPRESSION: NORMAL MAMMOGRAM BILATERALLY. ASSESSMENT CATEGORY: BIRADS Category 1: Negative. A letter regarding these results will be sent to the patient by the facility within 30 days. FOLLOW UP RECOMMENDATION: Yearly follow up mammogram recommended. (A) Approximately 10% of breast cancers are not detected by mammography. A normal mammogram should not delay biopsy of a clinically suspicious abnormality. Electronically Signed: Kam Cates, at 18:03 EDT Tel , Service support , BI/SCREEN MAMM (CAD) W/TORY HEALY
== END ==
PROVIDERS: Family Provider Family Medicine; PCP Family Medicine; Referring Provider Obstetrics & Gynecology; Visit Provider Obstetrics & Gynecology
DX: Z12.31 Encounter for screening mammogram for malignant neoplasm of breast (principal)
CPT/HCPCS: 77063; 77067